=== PATIENT | female | born 1980 | race Caucasian/White ===

== ENCOUNTER 2020-04-05 12:00 | Outpatient (RCR) | payer OTHER, SELFPAY ==
--- NOTE | 2019-12-08 10:18 | PT.OIE ---
Current Diagnoses Lumbago with sciatica, unspecified side (12/07/19) Visit Care Team Role Provider Type CRISTIAN Hdez Attending Provider Non-Staff Primary Care Provider Referring Provider Specialty: Medical Address: [address] [place] [address], [address], [place], [address] Email: Physical Therapy Initial Evaluation PT-OP-A Visit Information Start: 12/07/19 11:58 Freq: Status: Active Protocol: Document 12/07/19 13:43 [facility] (Rec: 12/07/19 13:55 [facility] [id number]) Out-Patient Physical Therapy Visit Information Visit Information Visit Type Initial Evaluation Visit Start Time 13:45 Visit Stop Time 14:30 Total Visit Minutes 45 Visit Number 1 Evaluation Information Evaluation Date 12/07/19 PT-OP-B Current Condition Start: 12/07/19 11:58 Freq: Status: Active Protocol: Document 12/07/19 13:43 [facility] (Rec: 12/07/19 13:55 [facility] [id number]) Current Condition History of Current Condition Onset Date ongoing complaints of back pain History of Current Condition When she was with her daughter 10 years ago the pain began. She was 9.5 #. 27 hour labor. Vaginal . Since then, It has been coming and going since then but this year she has had to take two days off of work due to so much pain. Sciatic pain that would make her drop her leg. The pain can change sides. She has been getting regular ocular care aide. She has been feeling improvement with that. Feels like she isn't able to keep her core engaged in standing. She did try yoga this fall but that didn't change her symptoms. PT-OP-C Subjective Start: 12/07/19 11:58 Freq: Status: Active Protocol: Document 12/07/19 17:43 [facility] (Rec: 12/07/19 17:45 [facility] [id number]) OP-PT Pain Assessment Pain Assessment Grid Paper Pain Assessment Grid Completed Yes Location across the lower sacral region Pain Location Details pain across the low back and sacrum, pain radiates down the back of B Legs Intensity 4 Scale Used Numeric (0 - 10) Radiating Location to the posterior legs bilaterally Pain Aggravating Factors Activity,Exercise Comments Pain Comments pain is intermittent, it can range from 1-4 but then at times can increase to 7-8/10 with sciatic symptoms PT-OP-F Manual Assessment Start: 12/07/19 11:58 Freq: Status: Active Protocol: Document 12/07/19 17:46 [facility] (Rec: 12/07/19 17:53 [facility] [id number]) Manual Assessments Soft Tissue Assessment Soft Tissue Mobility Assessment tightness of the lumbar parapspinals, quadratus lumborum, piriformis B, obturator internus, coccygues Joint Mobility Assessment Joint Mobility Assessment decreased sacral movement into counternutation, decreased posterior hip capsule mobility B PT-OP-J Posture/Palpation/Skin Start: 12/07/19 11:58 Freq: Status: Active Protocol: Document 12/07/19 17:46 [facility] (Rec: 12/07/19 17:53 [facility] [id number]) Posture Evaluation Comments Posture Comments flattened lumbar curve with patient placing strain on the anterior hips Palpation Assessment Location piriformis Palpation Location B piriformis Palpation Findings Soft Tissue Tightness,Spasm, Muscle Guarding,Tenderness lumbar paraspinals Palpation Location lumbar paraspinals Palpation Findings Soft Tissue Tightness,Muscle Guarding,Tenderness PT-OP-K Range of Motion Start: 12/07/19 11:58 Freq: Status: Active Protocol: Document 12/07/19 17:46 [facility] (Rec: 12/07/19 17:53 [facility] [id number]) Lumbar Spine Range of Motion Lumbar Spine Active Testing Position Standing Comments WNL but pain is increased with lumbar extension Hip Goniometric Range of Motion Hip ROM Limitations Hip ROM Limitations Soft Tissue Tightness Comments decreased hip flexion B to 110 degrees with posterior hip capsule tightness PT-OP-L Special Tests Start: 12/07/19 11:58 Freq: Status: Active Protocol: Document 12/07/19 17:46 [facility] (Rec: 12/07/19 17:53 [facility] [id number]) Special Tests Lumbar Spine Special Tests Other- 1 Test Results + ASLR test on the right for left side unlocking of the SI joint PT-OP-M Strength Start: 12/07/19 11:58 Freq: Status: Active Protocol: Document 12/07/19 17:46 [facility] (Rec: 12/07/19 17:53 [facility] [id number]) Trunk Strength Trunk Manual Muscle Testing Testing Position Supine Core Stabilization Decreased core stability of pelvic floor and Transverse abdominal musculature PT-OP-Q Treatments Start: 12/07/19 11:58 Freq: Status: Active Protocol: Document 12/07/19 17:46 [facility] (Rec: 12/07/19 17:53 [facility] [id number]) Therapeutic Exercises Supine Exercises TA facilitation with marches Supine Exercise Name TA facilitation with marches Side bilateral iliopsoas stretch in darrel test position Supine Exercise Name iliopsoas stretch in darrel test position Side bilateral Reps/Minutes hold 60 sec Other Exercises jose pose Other Exercise Name jose pose Side bilateral quadraped cat cow and sidebends Reps/Minutes x 10 each Manual Therapy Treatment Soft Tissue Mobilization lumbar paraspinal STM Body Location lumbar paraspinals Mobilization Type Myofascial Release,Rolling Intensity/Depth Moderate Body Position Prone Comments Prone over the body pillow, lots of tightness and compression in the lumbar paraspinals PT-OP-T Assessment and Plan Start: 12/07/19 11:58 Freq: Status: Active Protocol: Document 12/07/19 17:53 [facility] (Rec: 12/07/19 17:58 [facility] [id number]) Physical Therapy Assessment Rehab Potential Rehabilitation Potential Excellent Evaluation Complexity Number of Personal Factors/Comorbidities 0 Number of Body Systems Impaired 1-2 Clinical Presentation at Evaluation Stable Impairments Impairments Activity Tolerance,Pain, Posture,ROM,Soft Tissue Mobility,Strength Goals Five Impairment posterior hip capsule tightness with decreased ROM of hip flexion/extension Senior Care Goal (LTG) Marianne demonstrates full pain free ROM of B hips and has improved mobility of the posterior hip capsule to allow for full hip flexion with daily activities LTG Duration 8 weeks Four Impairment Piriformis tightness contributing to sciatic pain Short Term Goal (STG) Marianne is educated on stretches to release the piriformis muscle as well as educated on decreased gluteal tightness with standing to decrease c/o sciatic symptoms STG Duration 4 weeks Three Impairment Decreased strength of the transverse abdominal muscles and pelvic floor Short Term Goal (STG) Marianne is able to sustain a pelvic floor and transverse abdominal contraction x 10 seconds STG Duration 4 weeks Senior Care Goal (LTG) Marianne is able to perform dynamic lumbar and SI stabilization exercises for improved support of the low back and SI joint. LTG Duration 8 weeks Two Impairment Lumbar paraspinal tightness and shortening of the muscles Short Term Goal (STG) Marianne is educated on specific stretches she can do to lengthen the lumbar paraspinals STG Duration 4 weeks One Impairment low back and sacral pain with intermittent sciatic symptoms down B post LE Drill Instructor Goal (LTG) Marianne reports decreased episodes of LBP and sacral pain and is no longer experiencing sciatic symptoms down the posterior B LE LTG Duration 8 weeks Assessment Summary Assessment Marianne presents to PT today with c/o low back pain that is intermittent in nature with radicular symptoms at times down the posterior thighs. She reports it is difficut for her to stand up in good posture as it feels difficult to do. Pain will begin in her sacrum and then radiate out to her lateral hip. With examination today Marianne stands with a flattened lumbar curve . Sacral counternutation is limited. She has a great deal of tightness in her lumbar paraspinals. Lumbar flexion feels good to her and extension increases her pain. She tends to hang on her Y ligaments in the anterior hip a bit. She lacks full hip flexion bilaterally with tightness in the posterior hip capsule. She has tightness in her iliopsoas Left greater than right side. Her inner core muscles are weak and SI/ low back stabilization is decreased. Physical Therapy Plan Frequency and Duration Frequency of Treatment 2x/Week Duration of Treatment 8 Plan of Care Start Date 12/07/19 Plan of Care End Date 02/01/20 Therapeutic Interventions Therapeutic Interventions Home Exercise Program,Joint Mobilizations,Manual Therapy, Neuromuscular Re-education, Patient/Caregiver Education, Self-Care/Home Management,Soft Tissue Mobilization, Therapeutic Exercises Next Visit Focus/Plan Next Note Type Treatment Note Next Visit Plan work on posterior hip capsule mobility, release at the piriformis B, TA and pelvic floor stabilization, add happy baby stretch for lumbar flexion and hip mobility, STM to lengthen the lumbar paraspinals
--- NOTE | 2019-12-08 10:19 | PT.OPPOC ---
Physical, Occupational & Speech Therapy At [facility] Current Diagnoses Lumbago with sciatica, unspecified side (12/07/19) Visit Care Team Role Provider Type CRISTIAN Hdez Attending Provider Non-Staff Primary Care Provider Referring Provider Specialty: Medical Address: [address] [place] [address] [address], [place], [address] Email: Plan Of Care PT-OP-T Assessment and Plan Start: 12/07/19 11:58 Freq: Status: Active Protocol: Document 12/07/19 17:53 [facility] (Rec: 12/07/19 17:58 [facility] [id number]) Physical Therapy Assessment Rehab Potential Rehabilitation Potential Excellent Evaluation Complexity Number of Personal Factors/Comorbidities 0 Number of Body Systems Impaired 1-2 Clinical Presentation at Evaluation Stable Impairments Impairments Activity Tolerance,Pain, Posture,ROM,Soft Tissue Mobility,Strength Goals Five Impairment posterior hip capsule tightness with decreased ROM of hip flexion/extension Yolk Spray Drier Goal (LTG) Marianne demonstrates full pain free ROM of B hips and has improved mobility of the posterior hip capsule to allow for full hip flexion with daily activities LTG Duration 8 weeks Four Impairment Piriformis tightness contributing to sciatic pain Short Term Goal (STG) Marianne is educated on stretches to release the piriformis muscle as well as educated on decreased gluteal tightness with standing to decrease c/o sciatic symptoms STG Duration 4 weeks Three Impairment Decreased strength of the transverse abdominal muscles and pelvic floor Short Term Goal (STG) Marianne is able to sustain a pelvic floor and transverse abdominal contraction x 10 seconds STG Duration 4 weeks Yolk Spray Drier Goal (LTG) Marianne is able to perform dynamic lumbar and SI stabilization exercises for improved support of the low back and SI joint. LTG Duration 8 weeks Two Impairment Lumbar paraspinal tightness and shortening of the muscles Short Term Goal (STG) Marianne is educated on specific stretches she can do to lengthen the lumbar paraspinals STG Duration 4 weeks One Impairment low back and sacral pain with intermittent sciatic symptoms down B post LE Yolk Spray Drier Goal (LTG) Marianne reports decreased episodes of LBP and sacral pain and is no longer experiencing sciatic symptoms down the posterior B LE LTG Duration 8 weeks Assessment Summary Assessment Marianne presents to PT today with c/o low back pain that is intermittent in nature with radicular symptoms at times down the posterior thighs. She reports it is fatiguing for her to stand up in good posture as it feels difficult to do. Pain will begin in her sacrum and then radiate out to her lateral hip. With examination today Marianne stands with a flattened lumbar curve. Sacral counter nutation is limited. She has a great deal of tightness in her lumbar paraspinals. Lumbar flexion feels good to her and extension increases her pain. She tends to hang on her Y ligaments in the anterior hip a bit. She lacks full hip flexion bilaterally with tightness in the posterior hip capsule. She has tightness in her iliopsoas Left greater than right side. Her inner core muscles are weak and SI/ low back stabilization is decreased. Marianne is a good candidate for PT. Physical Therapy Plan Frequency and Duration Frequency of Treatment 2x/Week Duration of Treatment 8 Plan of Care Start Date 12/07/19 Plan of Care End Date 02/01/20 Therapeutic Interventions Therapeutic Interventions Home Exercise Program,Joint Mobilizations,Manual Therapy, Neuromuscular Re-education, Patient/Caregiver Education, Self-Care/Home Management,Soft Tissue Mobilization, Therapeutic Exercises Next Visit Focus/Plan Next Note Type Treatment Note Next Visit Plan work on posterior hip capsule mobility, release at the piriformis B, TA and pelvic floor stabilization, add happy baby stretch for lumbar flexion and hip mobility, STM to lengthen the lumbar paraspinals Plan of Care Dates Plan of Care Start Date 12/07/19 Plan of Care End Date 02/01/20 Electronically Signed by: Pooja Guidry, PT 12/08/19 1019 Please Sign and Return: I have reviewed this Plan of Care and certify that the skilled therapy services above are required to meet the patient?s needs. Physician Signature Date Printed Name and Credentials Clinical Instructor Signature Printed Name and Credentials
--- NOTE | 2019-12-14 15:54 | PT.OTN ---
Current Diagnoses Lumbago with sciatica, unspecified side (12/14/19) Physical Therapy Treatment Note PT-OP-A Visit Information Start: 12/07/19 11:58 Freq: Status: Active Protocol: Document 12/14/19 13:53 [facility] (Rec: 12/14/19 13:56 [facility] [id number]) Out-Patient Physical Therapy Visit Information Visit Information Visit Type Treatment Note Visit Stop Time 13:45 Total Visit Minutes 1,430 Visit Number 45 Number of DIGITAL PRESS OPERATOR Visits 2 PT-OP-B Current Condition Start: 12/07/19 11:58 Freq: Status: Active Protocol: Document 12/07/19 13:43 [facility] (Rec: 12/07/19 13:55 [facility] [id number]) Current Condition History of Current Condition Onset Date ongoing complaints of back pain History of Current Condition When she was with her daughter 10 years ago the pain began. She was 9.5 #. 27 hour labor. Vaginal . Since then, It has been coming and going since then but this year she has had to take two days off of work due to so much pain. Sciatic pain that would make her drop her leg. The pain can change sides. She has been getting regular congregational care pastor. She has been feeling improvement with that. Feels like she isn't able to keep her core engaged in standing. She did try yoga this fall but that didn't change her symptoms. PT-OP-C Subjective Start: 12/07/19 11:58 Freq: Status: Active Protocol: Document 12/14/19 13:53 [facility] (Rec: 12/14/19 13:56 [facility] [id number]) OP-PT Subjective Patient Comments Patient Comments Did well after last visit, had a adjustment yesterday from her chiropractor and it took the pressure off but she feels the sacral pain. It feels like the nerve is flared and she can feel pain in her R anterior hip as well. Marianne notes she has been trying to stand without her gluteals clenched. PT-OP-F Manual Assessment Start: 12/07/19 11:58 Freq: Status: Active Protocol: Document 12/07/19 17:46 [facility] (Rec: 12/07/19 17:53 [facility] [id number]) Manual Assessments Soft Tissue Assessment Soft Tissue Mobility Assessment tightness of the lumbar parapspinals, quadratus lumborum, piriformis B, obturator internus, coccygues Joint Mobility Assessment Joint Mobility Assessment decreased sacral movement into counternutation, decreased posterior hip capsule mobility B PT-OP-J Posture/Palpation/Skin Start: 12/07/19 11:58 Freq: Status: Active Protocol: Document 12/07/19 17:46 [facility] (Rec: 12/07/19 17:53 [facility] [id number]) Posture Evaluation Comments Posture Comments flattened lumbar curve with patient placing strain on the anterior hips Palpation Assessment Location piriformis Palpation Location B piriformis Palpation Findings Soft Tissue Tightness,Spasm, Muscle Guarding,Tenderness lumbar paraspinals Palpation Location lumbar paraspinals Palpation Findings Soft Tissue Tightness,Muscle Guarding,Tenderness PT-OP-K Range of Motion Start: 12/07/19 11:58 Freq: Status: Active Protocol: Document 12/07/19 17:46 [facility] (Rec: 12/07/19 17:53 [facility] [id number]) Lumbar Spine Range of Motion Lumbar Spine Active Testing Position Standing Comments WNL but pain is increased with lumbar extension Hip Goniometric Range of Motion Hip ROM Limitations Hip ROM Limitations Soft Tissue Tightness Comments decreased hip flexion B to 110 degrees with posterior hip capsule tightness PT-OP-L Special Tests Start: 12/07/19 11:58 Freq: Status: Active Protocol: Document 12/07/19 17:46 [facility] (Rec: 12/07/19 17:53 [facility] [id number]) Special Tests Lumbar Spine Special Tests Other- 1 Test Results + ASLR test on the right for left side unlocking of the SI joint PT-OP-M Strength Start: 12/07/19 11:58 Freq: Status: Active Protocol: Document 12/07/19 17:46 [facility] (Rec: 12/07/19 17:53 [facility] [id number]) Trunk Strength Trunk Manual Muscle Testing Testing Position Supine Core Stabilization Decreased core stability of pelvic floor and Transverse abdominal musculature PT-OP-Q Treatments Start: 12/07/19 11:58 Freq: Status: Active Protocol: Document 12/14/19 13:53 [facility] (Rec: 12/14/19 13:56 [facility] [id number]) Therapeutic Exercises Supine Exercises happy baby Supine Exercise Name happy baby stretch Reps/Minutes hold 2-3 minutes hip abduction with theraband Supine Exercise Name hip abduction with theraband Reps/Minutes x 10 reps ball squeeze with pelvic floor activation Supine Exercise Name ball squeeze with pelvic floor activation Reps/Minutes 10 reps x 5 sec hold TA facilitation with marches Supine Exercise Name TA facilitation with marches Side bilateral iliopsoas stretch in darrel test position Supine Exercise Name iliopsoas stretch in darrel test position Side bilateral Reps/Minutes hold 60 sec Manual Therapy Treatment Soft Tissue Mobilization 1 Body Location STM around the sacrum in a prone position over the body pillow Comments pt tolerates the prone body pillow. She has pain with trying to lay prone without it . Joint Mobilizations posterior hip capsule mobilization Joint supine hip inferior glide with belt Comments gentel posterior capule mobilizations were performed but Marianne was hesitant on this motion so grade 1 only was performed. Hip distraction felt good. Manual Techniques MET right anterior innominant rotation Type MET Right anterior innominant rotation Comments good correction of anterior rotation on the right with MET today. PT-OP-T Assessment and Plan Start: 12/07/19 11:58 Freq: Status: Active Protocol: Document 12/14/19 15:50 [facility] (Rec: 12/14/19 15:54 [facility] [id number]) Physical Therapy Assessment Assessment Summary Assessment Marianne did well following last visit, today she felt pain in her right sacral region and felt some nerve pain. She was anteriorly rotated in her innomiant today and this corrected with a MET. I feel she is unstable in her SI and she shifts out pretty frequently. The goal is to stabilize her and reduce muscle tone in the lumbar paraspinals. I held off on TA with bc today and we focused on isometric pelvic floor and TA. She was shown the SI belt and this did feel good to her when she tried it on. She was given information on a SI belt for home. She was also shown how to use the miracle balls for self piriformis release. Physical Therapy Plan Frequency and Duration Frequency of Treatment 2x/Week Duration of Treatment 8 Plan of Care Start Date 12/07/19 Plan of Care End Date 02/01/20 Therapeutic Interventions Therapeutic Interventions Home Exercise Program,Joint Mobilizations,Manual Therapy, Neuromuscular Re-education, Patient/Caregiver Education, Self-Care/Home Management,Soft Tissue Mobilization, Therapeutic Exercises Next Visit Focus/Plan Next Note Type Treatment Note Next Visit Plan continue to work on SI stabilization, try posterior hip capsule mobilizations again as Marianne lacks full hip flexion, continue to work on releasing the piriformis, recheck SI and sacral position next visit.
--- NOTE | 2019-12-22 17:08 | PT.OTN ---
Current Diagnoses Lumbago with sciatica, unspecified side (12/22/19) Physical Therapy Treatment Note PT-OP-A Visit Information Start: 12/07/19 11:58 Freq: Status: Active Protocol: Document 12/22/19 16:56 AW (Rec: 12/22/19 17:08 AW [id number]) Out-Patient Physical Therapy Visit Information Visit Information Visit Type Treatment Note Visit Start Time 15:18 Visit Stop Time 16:03 Total Visit Minutes 45 Visit Number 3 Number of RECEPTIONIST TELEPHONE OPERATOR Visits 0 PT-OP-B Current Condition Start: 12/07/19 11:58 Freq: Status: Active Protocol: Document 12/07/19 13:43 AM[facility] (Rec: 12/07/19 13:55 AMH [id number]) Current Condition History of Current Condition Onset Date ongoing complaints of back pain History of Current Condition When she was with her daughter 10 years ago the pain began. She was 9.5 #. 27 hour labor. Vaginal . Since then, It has been coming and going since then but this year she has had to take two days off of work due to so much pain. Sciatic pain that would make her drop her leg. The pain can change sides. 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 She has been feeling improvement with that. Feels like she isn't able to keep her core engaged in standing. She did try yoga this fall but that didn't change her symptoms. PT-OP-C Subjective Start: 12/07/19 11:58 Freq: Status: Active Protocol: Document 12/22/19 16:56 AW (Rec: 12/22/19 17:08 AW [id number]) OP-PT Subjective Patient Comments Patient Comments Pt had a chiropractic adjustment yesterday and is feeling ok today. PT-OP-F Manual Assessment Start: 12/07/19 11:58 Freq: Status: Active Protocol: Document 12/07/19 17:46 AMH (Rec: 12/07/19 17:53 AMH [id number]) Manual Assessments Soft Tissue Assessment Soft Tissue Mobility Assessment tightness of the lumbar parapspinals, quadratus lumborum, piriformis B, obturator internus, coccygues Joint Mobility Assessment Joint Mobility Assessment decreased sacral movement into counternutation, decreased posterior hip capsule mobility B PT-OP-J Posture/Palpation/Skin Start: 12/07/19 11:58 Freq: Status: Active Protocol: Document 12/07/19 17:46 AMH (Rec: 12/07/19 17:53 AMH [id number]) Posture Evaluation Comments Posture Comments flattened lumbar curve with patient placing strain on the anterior hips Palpation Assessment Location piriformis Palpation Location B piriformis Palpation Findings Soft Tissue Tightness,Spasm, Muscle Guarding,Tenderness lumbar paraspinals Palpation Location lumbar paraspinals Palpation Findings Soft Tissue Tightness,Muscle Guarding,Tenderness PT-OP-K Range of Motion Start: 12/07/19 11:58 Freq: Status: Active Protocol: Document 12/07/19 17:46 AMH (Rec: 12/07/19 17:53 AMH [id number]) Lumbar Spine Range of Motion Lumbar Spine Active Testing Position Standing Comments WNL but pain is increased with lumbar extension Hip Goniometric Range of Motion Hip ROM Limitations Hip ROM Limitations Soft Tissue Tightness Comments decreased hip flexion B to 110 degrees with posterior hip capsule tightness PT-OP-L Special Tests Start: 12/07/19 11:58 Freq: Status: Active Protocol: Document 12/07/19 17:46 AMH (Rec: 12/07/19 17:53 AMH [id number]) Special Tests Lumbar Spine Special Tests Other- 1 Test Results + ASLR test on the right for left side unlocking of the SI joint PT-OP-M Strength Start: 12/07/19 11:58 Freq: Status: Active Protocol: Document 12/07/19 17:46 AMH (Rec: 12/07/19 17:53 AMH [id number]) Trunk Strength Trunk Manual Muscle Testing Testing Position Supine Core Stabilization Decreased core stability of pelvic floor and Transverse abdominal musculature PT-OP-Q Treatments Start: 12/07/19 11:58 Freq: Status: Active Protocol: Document 12/22/19 16:56 AW (Rec: 12/22/19 17:08 AW [id number]) Therapeutic Exercises Supine Exercises TA facilitation with marches Supine Exercise Name TA facilitation with marches Side bilateral Reps/Minutes 12 minutes Comments bent knee fallouts, marches, heel slides on and off the table iliopsoas stretch in darrel test position Supine Exercise Name iliopsoas stretch in darrel test position Side bilateral Reps/Minutes hold 60 sec Comments with contract/relax Other Exercises jose pose Other Exercise Name jose pose Side bilateral Comments with hands walked out to left combined with STM L piriformis quadraped cat cow and sidebends Reps/Minutes x 10 each Manual Therapy Treatment Soft Tissue Mobilization lumbar paraspinal STM Body Location lumbar paraspinals Mobilization Type Myofascial Release,Rolling Intensity/Depth Moderate Body Position Prone Comments In quadruped/child's pose Joint Mobilizations distraction Grade III Body Position Supine Comments with slight rotation both directions posterior hip capsule mobilization Joint inferior glides with manual traction Grade III Comments Pt still hesitant regarding posterior glides but reports inferior glide feels good PT-OP-T Assessment and Plan Start: 12/07/19 11:58 Freq: Status: Active Protocol: Document 12/22/19 16:56 AW (Rec: 12/22/19 17:08 AW [id number]) Physical Therapy Assessment Assessment Summary Assessment Marianne denied nerve pain today but did have complaint of right sacral pain. Child's pose stretch with emphasis on posterior hip capsule was an effective introduction to posterior mobilization which pt may be interested in at next visit. 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 Physical Therapy Plan Frequency and Duration Frequency of Treatment 2x/Week Duration of Treatment 8 Plan of Care Start Date 12/07/19 Plan of Care End Date 02/01/20 Therapeutic Interventions Therapeutic Interventions Home Exercise Program,Joint Mobilizations,Manual Therapy, Neuromuscular Re-education, Patient/Caregiver Education, Self-Care/Home Management,Soft Tissue Mobilization, Therapeutic Exercises Next Visit Focus/Plan Next Note Type Treatment Note Next Visit Plan continue to work on SI stabilization, try posterior hip capsule mobilizations again as Marianne lacks full hip flexion, continue to work on releasing the piriformis, recheck SI and sacral position next visit.
--- NOTE | 2019-12-31 08:24 | PT.OTN ---
Current Diagnoses Lumbago with sciatica, unspecified side (12/31/19) Physical Therapy Treatment Note PT-OP-A Visit Information Start: 12/07/19 11:58 Freq: Status: Active Protocol: Document 12/31/19 07:30 SP (Rec: 12/31/19 09:27 SP [id number]) Out-Patient Physical Therapy Visit Information Visit Information Visit Type Treatment Note Visit Start Time 07:30 Visit Stop Time 08:24 Total Visit Minutes 54 Visit Number 4 Number of CAPACITOR TESTER Visits 1 PT-OP-B Current Condition Start: 12/07/19 11:58 Freq: Status: Active Protocol: Document 12/07/19 13:43 AMH (Rec: 12/07/19 13:55 AMH [id number]) Current Condition History of Current Condition Onset Date ongoing complaints of back pain History of Current Condition When she was with her daughter 10 years ago the pain began. She was 9.5 #. 27 hour labor. Vaginal . Since then, It has been coming and going since then but this year she has had to take two days off of work due to so much pain. Sciatic pain that would make her drop her leg. The pain can change sides. 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 She has been feeling improvement with that. Feels like she isn't able to keep her core engaged in standing. She did try yoga this fall but that didn't change her symptoms. PT-OP-C Subjective Start: 12/07/19 11:58 Freq: Status: Active Protocol: Document 12/31/19 07:30 SP (Rec: 12/31/19 09:27 SP [id number]) OP-PT Subjective Patient Comments Patient Comments Pt stated compliant with HEP stretches and strengthening pelvic exercises and feels pelvis is very tired after but loosened up more than when started. She took approx 3 mile walk with inclines about 2 days ago and anterior B thighs still soreness. Still gets a wedged tightness and almost block feeling R > L more anterior R hip and deep low back that doesn't fully release when tries to perform hip flexion motions. At times when performing the child's pose deeper hip flexion stretch motions does get a light nervy feeling in R L/S down into R glut and some into L glut areas. Pt concerned about the tiring feeling after exercises and her walks if is normal for how progressing and why. PT-OP-F Manual Assessment Start: 12/07/19 11:58 Freq: Status: Active Protocol: Document 12/07/19 17:46 AMH (Rec: 12/07/19 17:53 [facility] [id number]) Manual Assessments Soft Tissue Assessment Soft Tissue Mobility Assessment tightness of the lumbar parapspinals, quadratus lumborum, piriformis B, obturator internus, coccygues Joint Mobility Assessment Joint Mobility Assessment decreased sacral movement into counternutation, decreased posterior hip capsule mobility B PT-OP-J Posture/Palpation/Skin Start: 12/07/19 11:58 Freq: Status: Active Protocol: Document 12/07/19 17:46 AMH (Rec: 12/07/19 17:53 [facility] [id number]) Posture Evaluation Comments Posture Comments flattened lumbar curve with patient placing strain on the anterior hips Palpation Assessment Location piriformis Palpation Location B piriformis Palpation Findings Soft Tissue Tightness,Spasm, Muscle Guarding,Tenderness lumbar paraspinals Palpation Location lumbar paraspinals Palpation Findings Soft Tissue Tightness,Muscle Guarding,Tenderness PT-OP-K Range of Motion Start: 12/07/19 11:58 Freq: Status: Active Protocol: Document 12/07/19 17:46 AMH (Rec: 12/07/19 17:53 [facility] [id number]) Lumbar Spine Range of Motion Lumbar Spine Active Testing Position Standing Comments WNL but pain is increased with lumbar extension Hip Goniometric Range of Motion Hip ROM Limitations Hip ROM Limitations Soft Tissue Tightness Comments decreased hip flexion B to 110 degrees with posterior hip capsule tightness PT-OP-L Special Tests Start: 12/07/19 11:58 Freq: Status: Active Protocol: Document 12/07/19 17:46 AMH (Rec: 12/07/19 17:53 [facility] [id number]) Special Tests Lumbar Spine Special Tests Other- 1 Test Results + ASLR test on the right for left side unlocking of the SI joint PT-OP-M Strength Start: 12/07/19 11:58 Freq: Status: Active Protocol: Document 12/07/19 17:46 AMH (Rec: 12/07/19 17:53 [facility] [id number]) Trunk Strength Trunk Manual Muscle Testing Testing Position Supine Core Stabilization Decreased core stability of pelvic floor and Transverse abdominal musculature PT-OP-Q Treatments Start: 12/07/19 11:58 Freq: Status: Active Protocol: Document 12/31/19 07:30 SP (Rec: 12/31/19 09:27 SP [id number]) Therapeutic Exercises Supine Exercises happy baby Supine Exercise Name happy baby stretch Reps/Minutes hold 2-3 minutes Other Exercises jose pose Other Exercise Name jose pose Side bilateral Comments with hands walked out to left combined with STM L piriformis quadraped cat cow and sidebends Reps/Minutes x 10 each Comments side bends (tail wag looking) cued for elevation/ level R pelvis multif fac Manual Therapy Treatment Soft Tissue Mobilization psoas, iliacus Body Location R>L Mobilization Type Myofascial Release,Sustained Pressure Intensity/Depth Moderate Body Position Hooklying Comments gentle pressure, sink with breath- muscle guarding 1 Body Location STM around the sacrum in a prone position over the body pillow Comments pt tolerates the prone body pillow. She has pain with trying to lay prone without it . (tried child's pose today) lumbar paraspinal STM Body Location lumbar paraspinals Mobilization Type Myofascial Release,Rolling Intensity/Depth Moderate Body Position Prone Comments In quadruped/child's pose Joint Mobilizations distraction Grade III Body Position Supine Comments with slight rotation both directions posterior hip capsule mobilization Joint inferior glides with manual traction Grade III Comments Pt still hesitant regarding posterior glides but reports inferior glide feels good PT-OP-T Assessment and Plan Start: 12/07/19 11:58 Freq: Status: Active Protocol: Document 12/31/19 07:30 SP (Rec: 12/31/19 09:27 SP [id number]) Physical Therapy Assessment Goals Five Impairment posterior hip capsule tightness with decreased ROM of hip flexion/extension New Car Get Ready Mechanic Goal (LTG) Marianne demonstrates full pain free ROM of B hips and has improved mobility of the posterior hip capsule to allow for full hip flexion with daily activities LTG Duration 8 weeks Four Impairment Piriformis tightness contributing to sciatic pain Short Term Goal (STG) Marianne is educated on stretches to release the piriformis muscle as well as educated on decreased gluteal tightness with standing to decrease c/o sciatic symptoms STG Duration 4 weeks Three Impairment Decreased strength of the transverse abdominal muscles and pelvic floor Short Term Goal (STG) Marianne is able to sustain a pelvic floor and transverse abdominal contraction x 10 seconds STG Duration 4 weeks Senior Living Goal (LTG) Marianne is able to perform dynamic lumbar and SI stabilization exercises for improved support of the low back and SI joint. LTG Duration 8 weeks Two Impairment Lumbar paraspinal tightness and shortening of the muscles Short Term Goal (STG) Marianne is educated on specific stretches she can do to lengthen the lumbar paraspinals STG Duration 4 weeks One Impairment low back and sacral pain with intermittent sciatic symptoms down B post LE Senior Living Goal (LTG) Marianne reports decreased episodes of LBP and sacral pain and is no longer experiencing sciatic symptoms down the posterior B LE LTG Duration 8 weeks Assessment Summary Assessment Pt comments that initially posterior > inferior glides trying to relax to allow deep stretch and can feel some releases but can turn into tiring (unsure if that means jt releasing then musculature starts to engage to keep jt stable). Provided education to give us feedback for benefits of release but not destabillize jt possible feeling of tiredness. Pt reported felt more relaxed and ableto allow her tailbone extend more which feels better but still does not get that full release wanting and same little front pelvic girdle and anterior thigh tiring feeling . Educated tiring might be musculature trying to strengthen and working toward balance of endurance of allowing tightness releases while supporting SI, L/S and hip joints. The 3 mile walk might have been to long of a distance to maintain stabilzation so over tightened and muscle engagement causing tiring feeling. Physical Therapy Plan Frequency and Duration Frequency of Treatment 2x/Week Duration of Treatment 8 Plan of Care Start Date 12/07/19 Plan of Care End Date 02/01/20 Therapeutic Interventions Therapeutic Interventions Home Exercise Program,Joint Mobilizations,Manual Therapy, Neuromuscular Re-education, Patient/Caregiver Education, Self-Care/Home Management,Soft Tissue Mobilization, Therapeutic Exercises Next Visit Focus/Plan Next Note Type Treatment Note Next Visit Plan Assess response to STMs to psoas last tx. continue to work on SI stabilization, try posterior hip capsule mobilizations again as Marianne lacks full hip flexion, continue to work on releasing the piriformis, recheck SI and sacral position next visit.
--- NOTE | 2020-01-07 08:15 | PT.OTN ---
Current Diagnoses Lumbago with sciatica, unspecified side (01/07/20) Physical Therapy Treatment Note PT-OP-A Visit Information Start: 12/07/19 11:58 Freq: Status: Active Protocol: Document 01/07/20 07:31 SP (Rec: 01/07/20 09:23 SP [id number]) Out-Patient Physical Therapy Visit Information Visit Information Visit Type Treatment Note Visit Start Time 07:31 Visit Stop Time 08:15 Total Visit Minutes 44 Visit Number 5 Number of RESCUE INSTRUCTOR Visits 1 PT-OP-B Current Condition Start: 12/07/19 11:58 Freq: Status: Active Protocol: Document 12/07/19 13:43 AMH (Rec: 12/07/19 13:55 AMH [id number]) Current Condition History of Current Condition Onset Date ongoing complaints of back pain History of Current Condition When she was with her daughter 10 years ago the pain began. She was 9.5 #. 27 hour labor. Vaginal . Since then, It has been coming and going since then but this year she has had to take two days off of work due to so much pain. Sciatic pain that would make her drop her leg. The pain can change sides. 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 She has been feeling improvement with that. Feels like she isn't able to keep her core engaged in standing. She did try yoga this fall but that didn't change her symptoms. PT-OP-C Subjective Start: 12/07/19 11:58 Freq: Status: Active Protocol: Document 01/07/20 07:31 SP (Rec: 01/07/20 09:23 SP [id number]) OP-PT Subjective Patient Comments Patient Comments Pt reported HEP improving strength, hip adduction isometric more challenging than abd against resistance, the stretching is helping but not getting that last deep release (pointed to SI) that wanting. PT-OP-F Manual Assessment Start: 12/07/19 11:58 Freq: Status: Active Protocol: Document 12/07/19 17:46 AMH (Rec: 12/07/19 17:53 AMH [id number]) Manual Assessments Soft Tissue Assessment Soft Tissue Mobility Assessment tightness of the lumbar parapspinals, quadratus lumborum, piriformis B, obturator internus, coccygues Joint Mobility Assessment Joint Mobility Assessment decreased sacral movement into counternutation, decreased posterior hip capsule mobility B PT-OP-J Posture/Palpation/Skin Start: 12/07/19 11:58 Freq: Status: Active Protocol: Document 12/07/19 17:46 AMH (Rec: 12/07/19 17:53 AMH [id number]) Posture Evaluation Comments Posture Comments flattened lumbar curve with patient placing strain on the anterior hips Palpation Assessment Location piriformis Palpation Location B piriformis Palpation Findings Soft Tissue Tightness,Spasm, Muscle Guarding,Tenderness lumbar paraspinals Palpation Location lumbar paraspinals Palpation Findings Soft Tissue Tightness,Muscle Guarding,Tenderness PT-OP-K Range of Motion Start: 12/07/19 11:58 Freq: Status: Active Protocol: Document 12/07/19 17:46 AMH (Rec: 12/07/19 17:53 AMH [id number]) Lumbar Spine Range of Motion Lumbar Spine Active Testing Position Standing Comments WNL but pain is increased with lumbar extension Hip Goniometric Range of Motion Hip ROM Limitations Hip ROM Limitations Soft Tissue Tightness Comments decreased hip flexion B to 110 degrees with posterior hip capsule tightness PT-OP-L Special Tests Start: 12/07/19 11:58 Freq: Status: Active Protocol: Document 12/07/19 17:46 AMH (Rec: 12/07/19 17:53 AMH [id number]) Special Tests Lumbar Spine Special Tests Other- 1 Test Results + ASLR test on the right for left side unlocking of the SI joint PT-OP-M Strength Start: 12/07/19 11:58 Freq: Status: Active Protocol: Document 12/07/19 17:46 AMH (Rec: 12/07/19 17:53 AMH [id number]) Trunk Strength Trunk Manual Muscle Testing Testing Position Supine Core Stabilization Decreased core stability of pelvic floor and Transverse abdominal musculature PT-OP-Q Treatments Start: 12/07/19 11:58 Freq: Status: Active Protocol: Document 01/07/20 07:31 SP (Rec: 01/07/20 09:23 SP [id number]) Therapeutic Exercises Supine Exercises TA heel slides Supine Exercise Name x5 R and L, then alternate x3 Reps/Minutes x10 Comments cuing TA and pelvis PPT comfort rang, not full ext ( challenges pelvis pos) hip abduction with theraband Supine Exercise Name hip abduction with theraband Resistance Green TB (#2 HEP) Reps/Minutes x 10 reps pause 2 sec comfort range Comments towel under buttocks suspend sacrum, TA cuing mid range pelvis ball squeeze with pelvic floor activation Supine Exercise Name ball squeeze with pelvic floor activation Resistance small purple ball (small pillow) Reps/Minutes 10 reps x 5 sec hold Comments towel under buttocks suspend sacrum, TA cuing mid range pelvis Prone Exercises modified bird dog Prone Exercise Name heel slide intially then small lift Side bilateral Reps/Minutes x5 Comments occasional cue for neutral pelvis, better core with small lift Manual Therapy Treatment Soft Tissue Mobilization psoas, iliacus Body Location R>L Mobilization Type Myofascial Release,Sustained Pressure Intensity/Depth Moderate Body Position Hooklying Comments gentle pressure with breath exhale Joint Mobilizations distraction Joint long leg pull Grade II Body Position Supine Comments with slight rotation both directions posterior hip capsule mobilization Joint inferior and lateral glides with manual traction Grade III Comments Pt decreased but still little hesitant regarding lateral glides but reports inferior glide feels good R tighter than L PT-OP-T Assessment and Plan Start: 12/07/19 11:58 Freq: Status: Active Protocol: Document 01/07/20 07:31 SP (Rec: 01/07/20 09:23 SP [id number]) Physical Therapy Assessment Goals Five Impairment posterior hip capsule tightness with decreased ROM of hip flexion/extension Longterm Goal (LTG) Marianne demonstrates full pain free ROM of B hips and has improved mobility of the posterior hip capsule to allow for full hip flexion with daily activities LTG Duration 8 weeks Four Impairment Piriformis tightness contributing to sciatic pain Short Term Goal (STG) Marianne is educated on stretches to release the piriformis muscle as well as educated on decreased gluteal tightness with standing to decrease c/o sciatic symptoms STG Duration 4 weeks Three Impairment Decreased strength of the transverse abdominal muscles and pelvic floor Short Term Goal (STG) Marianne is able to sustain a pelvic floor and transverse abdominal contraction x 10 seconds STG Duration 4 weeks Dam Tender Assistant Goal (LTG) Marianne is able to perform dynamic lumbar and SI stabilization exercises for improved support of the low back and SI joint. LTG Duration 8 weeks Two Impairment Lumbar paraspinal tightness and shortening of the muscles Short Term Goal (STG) Marianne is educated on specific stretches she can do to lengthen the lumbar paraspinals STG Duration 4 weeks One Impairment low back and sacral pain with intermittent sciatic symptoms down B post LE Longterm Goal (LTG) Marianne reports decreased episodes of LBP and sacral pain and is no longer experiencing sciatic symptoms down the posterior B LE LTG Duration 8 weeks Assessment Summary Assessment Pt give good feedback regarding very gentle hip mobes w/ trying to relax and allow distraction R>L guards. Reviewed HEP and cuing required for PPT and TA engagement during LE movements , hasn't been focusing on pelvic positioning as much as LE movement improved end of tx , still a challenge w/ comment good tiring internal pelvis mm and adductors while having a balance of sacral extension today. Continue progress core strengthening with quality stabilization and no adverse affects of nervy feeling. Physical Therapy Plan Frequency and Duration Frequency of Treatment 2x/Week Duration of Treatment 8 Plan of Care Start Date 12/07/19 Plan of Care End Date 02/01/20 Therapeutic Interventions Therapeutic Interventions Home Exercise Program,Joint Mobilizations,Manual Therapy, Neuromuscular Re-education, Patient/Caregiver Education, Self-Care/Home Management,Soft Tissue Mobilization, Therapeutic Exercises Next Visit Focus/Plan Next Note Type Treatment Note Next Visit Plan Assess response to STMs to psoas, hip mobs, TA trng with HEP. Continue per PT POC: to work on SI stabilization, try posterior hip capsule mobilizations again as Marianne lacks full hip flexion, continue to work on releasing the piriformis, recheck SI and sacral position next visit.
--- NOTE | 2020-01-12 13:59 | PT.OTN ---
Current Diagnoses Lumbago with sciatica, unspecified side (01/12/20) Physical Therapy Treatment Note PT-OP-A Visit Information Start: 12/07/19 11:58 Freq: Status: Active Protocol: Document 01/12/20 12:02 [facility] (Rec: 01/12/20 12:09 [facility] [id number]) Out-Patient Physical Therapy Visit Information Visit Information Visit Type Treatment Note Visit Start Time 12:00 Visit Stop Time 12:45 Total Visit Minutes 45 Visit Number 6 Number of BOBBIN DRIER Visits 0 PT-OP-B Current Condition Start: 12/07/19 11:58 Freq: Status: Active Protocol: Document 12/07/19 13:43 [facility] (Rec: 12/07/19 13:55 [facility] [id number]) Current Condition History of Current Condition Onset Date ongoing complaints of back pain History of Current Condition When she was with her daughter 10 years ago the pain began. She was 9.5 #. 27 hour labor. Vaginal . Since then, It has been coming and going since then but this year she has had to take two days off of work due to so much pain. Sciatic pain that would make her drop her leg. The pain can change sides. She has been getting regular health care liaison. She has been feeling improvement with that. Feels like she isn't able to keep her core engaged in standing. She did try yoga this fall but that didn't change her symptoms. PT-OP-C Subjective Start: 12/07/19 11:58 Freq: Status: Active Protocol: Document 01/12/20 12:02 [facility] (Rec: 01/12/20 12:09 [facility] [id number]) OP-PT Subjective Patient Comments Patient Comments The fatigue into her legs is getting a little better, she is still feeling fatigued especially after walks. She hasn't had any episodes of the nerve pain Patient Reported Progress Improving PT-OP-F Manual Assessment Start: 12/07/19 11:58 Freq: Status: Active Protocol: Document 12/07/19 17:46 [facility] (Rec: 12/07/19 17:53 [facility] [id number]) Manual Assessments Soft Tissue Assessment Soft Tissue Mobility Assessment tightness of the lumbar parapspinals, quadratus lumborum, piriformis B, obturator internus, coccygues Joint Mobility Assessment Joint Mobility Assessment decreased sacral movement into counternutation, decreased posterior hip capsule mobility B PT-OP-J Posture/Palpation/Skin Start: 12/07/19 11:58 Freq: Status: Active Protocol: Document 12/07/19 17:46 [facility] (Rec: 12/07/19 17:53 [facility] [id number]) Posture Evaluation Comments Posture Comments flattened lumbar curve with patient placing strain on the anterior hips Palpation Assessment Location piriformis Palpation Location B piriformis Palpation Findings Soft Tissue Tightness,Spasm, Muscle Guarding,Tenderness lumbar paraspinals Palpation Location lumbar paraspinals Palpation Findings Soft Tissue Tightness,Muscle Guarding,Tenderness PT-OP-K Range of Motion Start: 12/07/19 11:58 Freq: Status: Active Protocol: Document 12/07/19 17:46 [facility] (Rec: 12/07/19 17:53 [facility] [id number]) Lumbar Spine Range of Motion Lumbar Spine Active Testing Position Standing Comments WNL but pain is increased with lumbar extension Hip Goniometric Range of Motion Hip ROM Limitations Hip ROM Limitations Soft Tissue Tightness Comments decreased hip flexion B to 110 degrees with posterior hip capsule tightness PT-OP-L Special Tests Start: 12/07/19 11:58 Freq: Status: Active Protocol: Document 12/07/19 17:46 [facility] (Rec: 12/07/19 17:53 [facility] [id number]) Special Tests Lumbar Spine Special Tests Other- 1 Test Results + ASLR test on the right for left side unlocking of the SI joint PT-OP-M Strength Start: 12/07/19 11:58 Freq: Status: Active Protocol: Document 12/07/19 17:46 [facility] (Rec: 12/07/19 17:53 [facility] [id number]) Trunk Strength Trunk Manual Muscle Testing Testing Position Supine Core Stabilization Decreased core stability of pelvic floor and Transverse abdominal musculature PT-OP-Q Treatments Start: 12/07/19 11:58 Freq: Status: Active Protocol: Document 01/12/20 13:52 [facility] (Rec: 01/12/20 13:58 [facility] [id number]) Therapeutic Exercises Supine Exercises TA heel slides Supine Exercise Name x5 R and L, then alternate x3 Reps/Minutes x10 Comments cuing TA and pelvis PPT comfort rang, not full ext ( challenges pelvis pos) happy baby Supine Exercise Name happy baby stretch Reps/Minutes hold 2-3 minutes hip abduction with theraband Supine Exercise Name hip abduction with theraband Resistance Green TB (#2 HEP) Reps/Minutes x 10 reps pause 2 sec comfort range Comments towel under buttocks suspend sacrum, TA cuing mid range pelvis ball squeeze with pelvic floor activation Supine Exercise Name ball squeeze with pelvic floor activation Resistance small purple ball (small pillow) Reps/Minutes 10 reps x 5 sec hold Comments towel under buttocks suspend sacrum, TA cuing mid range pelvis TA facilitation with marches Supine Exercise Name TA facilitation with marches Side bilateral Reps/Minutes 12 minutes Comments bent knee fallouts, marches, heel slides on and off the table iliopsoas stretch in darrel test position Supine Exercise Name iliopsoas stretch in darrel test position Side bilateral Reps/Minutes hold 60 sec Comments with contract/relax Other Exercises jose pose Other Exercise Name jose pose Side bilateral Comments with hands walked out to left combined with STM L piriformis quadraped cat cow and sidebends Reps/Minutes x 10 each Comments side bends (tail wag looking) cued for elevation/ level R pelvis multif fac Manual Therapy Treatment Joint Mobilizations sacral counternutation Joint MET for sacral counter nutation Body Position Sidelying Reps/Duration 5 reps posterior hip capsule mobilization Joint inferior and lateral glides with manual traction Grade III Comments Marianne tolerated this well today and notes it feels good now in her sacrum. She had improved hip flexion today following the hip capsule mobilizations Neuro Re-Education Treatment Other Activities EMG biofeedback for neuroeducation of the pelvic floor Details 10 Comments looked at resting tone of the pelvic floor which started at 2.5 uv. Marianne notes she often doesn't feel that she empties her bladder on the first attempt. HEr resting tone being guarded may be contributing to that. We worked today and relaxed awareness of the pelvic floor and she realized she clenches here quite a bit PT-OP-T Assessment and Plan Start: 12/07/19 11:58 Freq: Status: Active Protocol: Document 01/12/20 13:52 [facility] (Rec: 01/12/20 13:58 [facility] [id number]) Physical Therapy Assessment Assessment Summary Assessment Good tolerance today for treatment. Marianne is starting to tolerate more and hasn't had a flare up with the sciatic sx. I was able to improve hip flexion ROM today following posterior capsule mobilization. She realizes how much she guards in the sacral/gluteal region when she is standing. With EMG biofeedback here resting tone was elevated. She was able to relax her pelvic floor to get this to drop. Her homework this week was to start working on relaxation of the pelvic floor and then we will start working towards improved endurance as this was limited today on EMG biofeedback. Physical Therapy Plan Frequency and Duration Frequency of Treatment 2x/Week Duration of Treatment 8 Plan of Care Start Date 12/07/19 Plan of Care End Date 02/01/20 Therapeutic Interventions Therapeutic Interventions Home Exercise Program,Joint Mobilizations,Manual Therapy, Neuromuscular Re-education, Patient/Caregiver Education, Self-Care/Home Management,Soft Tissue Mobilization, Therapeutic Exercises Next Visit Focus/Plan Next Note Type Treatment Note Next Visit Plan Continue with EMG biofeedback, begin endurance training of the pelvic floor.
--- NOTE | 2020-01-19 14:29 | PT.OTN ---
Current Diagnoses Lumbago with sciatica, unspecified side (01/19/20) Physical Therapy Treatment Note PT-OP-A Visit Information Start: 12/07/19 11:58 Freq: Status: Active Protocol: Document 01/19/20 14:23 [facility] (Rec: 01/19/20 14:29 [facility] [id number]) Out-Patient Physical Therapy Visit Information Visit Information Visit Type Treatment Note Visit Start Time 12:00 Visit Stop Time 12:45 Total Visit Minutes 45 Visit Number 7 Number of ELECTRONIC ENGINEERING DRAFTSPERSON Visits 0 PT-OP-B Current Condition Start: 12/07/19 11:58 Freq: Status: Active Protocol: Document 12/07/19 13:43 [facility] (Rec: 12/07/19 13:55 [facility] [id number]) Current Condition History of Current Condition Onset Date ongoing complaints of back pain History of Current Condition When she was with her daughter 10 years ago the pain began. She was 9.5 #. 27 hour labor. Vaginal . Since then, It has been coming and going since then but this year she has had to take two days off of work due to so much pain. Sciatic pain that would make her drop her leg. The pain can change sides. She has been getting regular palliative care nurse practitioner. She has been feeling improvement with that. Feels like she isn't able to keep her core engaged in standing. She did try yoga this fall but that didn't change her symptoms. PT-OP-C Subjective Start: 12/07/19 11:58 Freq: Status: Active Protocol: Document 01/19/20 14:23 [facility] (Rec: 01/19/20 14:29 [facility] [id number]) OP-PT Subjective Patient Comments Patient Comments Marianne notes she hasn't had a flare up of nerve symptoms. she has been goign for walks has to really think about relaxing her gluteals. She is still getting the fatigue down her legs so is taking it slow . She realizes how much she contracted her gluteals in standing PT-OP-F Manual Assessment Start: 12/07/19 11:58 Freq: Status: Active Protocol: Document 12/07/19 17:46 [facility] (Rec: 12/07/19 17:53 [facility] [id number]) Manual Assessments Soft Tissue Assessment Soft Tissue Mobility Assessment tightness of the lumbar parapspinals, quadratus lumborum, piriformis B, obturator internus, coccygues Joint Mobility Assessment Joint Mobility Assessment decreased sacral movement into counternutation, decreased posterior hip capsule mobility B PT-OP-J Posture/Palpation/Skin Start: 12/07/19 11:58 Freq: Status: Active Protocol: Document 12/07/19 17:46 [facility] (Rec: 12/07/19 17:53 [facility] [id number]) Posture Evaluation Comments Posture Comments flattened lumbar curve with patient placing strain on the anterior hips Palpation Assessment Location piriformis Palpation Location B piriformis Palpation Findings Soft Tissue Tightness,Spasm, Muscle Guarding,Tenderness lumbar paraspinals Palpation Location lumbar paraspinals Palpation Findings Soft Tissue Tightness,Muscle Guarding,Tenderness PT-OP-K Range of Motion Start: 12/07/19 11:58 Freq: Status: Active Protocol: Document 12/07/19 17:46 [facility] (Rec: 12/07/19 17:53 [facility] [id number]) Lumbar Spine Range of Motion Lumbar Spine Active Testing Position Standing Comments WNL but pain is increased with lumbar extension Hip Goniometric Range of Motion Hip ROM Limitations Hip ROM Limitations Soft Tissue Tightness Comments decreased hip flexion B to 110 degrees with posterior hip capsule tightness PT-OP-L Special Tests Start: 12/07/19 11:58 Freq: Status: Active Protocol: Document 12/07/19 17:46 [facility] (Rec: 12/07/19 17:53 [facility] [id number]) Special Tests Lumbar Spine Special Tests Other- 1 Test Results + ASLR test on the right for left side unlocking of the SI joint PT-OP-M Strength Start: 12/07/19 11:58 Freq: Status: Active Protocol: Document 12/07/19 17:46 [facility] (Rec: 12/07/19 17:53 [facility] [id number]) Trunk Strength Trunk Manual Muscle Testing Testing Position Supine Core Stabilization Decreased core stability of pelvic floor and Transverse abdominal musculature PT-OP-Q Treatments Start: 12/07/19 11:58 Freq: Status: Active Protocol: Document 01/19/20 14:23 [facility] (Rec: 01/19/20 14:29 [facility] [id number]) Therapeutic Exercises Supine Exercises 1/2 foam roll thoracic stretch Supine Exercise Name 1/2 foam roll thoracic stretch Reps/Minutes 4 min TA heel slides Supine Exercise Name x5 R and L, then alternate x3 Reps/Minutes x10 Comments cuing TA and pelvis PPT comfort rang, not full ext ( challenges pelvis pos) happy baby Supine Exercise Name happy baby stretch Reps/Minutes hold 2-3 minutes TA facilitation with marches Supine Exercise Name TA facilitation with marches Side bilateral Reps/Minutes 12 minutes Comments bent knee fallouts, marches, heel slides on and off the table Other Exercises puppy dog pose with rock backs Comments for increased thoracic mobility at the thoracolumbar junction thoracic rotation with thread the needle Reps/Minutes x 5 reps each side jose pose Other Exercise Name jose pose Side bilateral Comments with hands walked out to left combined with STM L piriformis quadraped cat cow and sidebends Reps/Minutes x 10 each Comments side bends (tail wag looking) cued for elevation/ level R pelvis multif fac Manual Therapy Treatment Joint Mobilizations posterior hip capsule mobilization Joint inferior and lateral glides with manual traction Grade III Comments Marianne tolerated this well today and notes it feels good now in her sacrum. She had improved hip flexion today following the hip capsule mobilizations PT-OP-T Assessment and Plan Start: 12/07/19 11:58 Freq: Status: Active Protocol: Document 01/19/20 14:23 [facility] (Rec: 01/19/20 14:29 [facility] [id number]) Physical Therapy Assessment Assessment Summary Assessment Marianne is doing better with seating her hips in standing. What I noticed today is that she arches at L3-4 due to tightness in her thoracic spine. This hinge at L3-4 may be contributing to her leg weakness with walking. We worked on thoracic mobilty today and added in a half foam roll for her to stretch her thoracic spine. Right side hip still a litttle pinchy but much better. Improving TA stabilization Physical Therapy Plan Frequency and Duration Frequency of Treatment 2x/Week Duration of Treatment 8 Plan of Care Start Date 12/07/19 Plan of Care End Date 02/01/20 Therapeutic Interventions Therapeutic Interventions Home Exercise Program,Joint Mobilizations,Manual Therapy, Neuromuscular Re-education, Patient/Caregiver Education, Self-Care/Home Management,Soft Tissue Mobilization, Therapeutic Exercises
--- NOTE | 2020-01-26 13:51 | PT.OTN ---
Current Diagnoses Lumbago with sciatica, unspecified side (01/26/20) Physical Therapy Treatment Note PT-OP-A Visit Information Start: 12/07/19 11:58 Freq: Status: Active Protocol: Document 01/26/20 13:38 [facility] (Rec: 01/26/20 13:38 [facility] [id number]) Out-Patient Physical Therapy Visit Information Visit Information Visit Type Treatment Note Visit Start Time 12:00 Visit Stop Time 12:45 Total Visit Minutes 45 Visit Number 8 Number of ALL ROUND BUTCHER Visits 0 PT-OP-B Current Condition Start: 12/07/19 11:58 Freq: Status: Active Protocol: Document 12/07/19 13:43 [facility] (Rec: 12/07/19 13:55 [facility] [id number]) Current Condition History of Current Condition Onset Date ongoing complaints of back pain History of Current Condition When she was with her daughter 10 years ago the pain began. She was 9.5 #. 27 hour labor. Vaginal . Since then, It has been coming and going since then but this year she has had to take two days off of work due to so much pain. Sciatic pain that would make her drop her leg. The pain can change sides. She has been getting regular career development director. She has been feeling improvement with that. Feels like she isn't able to keep her core engaged in standing. She did try yoga this fall but that didn't change her symptoms. PT-OP-C Subjective Start: 12/07/19 11:58 Freq: Status: Active Protocol: Document 01/26/20 12:04 [facility] (Rec: 01/26/20 13:00 [facility] [id number]) OP-PT Subjective Patient Comments Patient Comments Had a nerve pain yesterday than wrapped down into the anterior right rip and thoracic. Still feels a wedge wotj hip flexior r>L but overall is feeling better. Marianne notes she walked the [address] this am and didn't feel the fatigue into her legs Patient Reported Progress Improving PT-OP-F Manual Assessment Start: 12/07/19 11:58 Freq: Status: Active Protocol: Document 12/07/19 17:46 [facility] (Rec: 12/07/19 17:53 [facility] [id number]) Manual Assessments Soft Tissue Assessment Soft Tissue Mobility Assessment tightness of the lumbar parapspinals, quadratus lumborum, piriformis B, obturator internus, coccygues Joint Mobility Assessment Joint Mobility Assessment decreased sacral movement into counternutation, decreased posterior hip capsule mobility B PT-OP-J Posture/Palpation/Skin Start: 12/07/19 11:58 Freq: Status: Active Protocol: Document 12/07/19 17:46 [facility] (Rec: 12/07/19 17:53 [facility] [id number]) Posture Evaluation Comments Posture Comments flattened lumbar curve with patient placing strain on the anterior hips Palpation Assessment Location piriformis Palpation Location B piriformis Palpation Findings Soft Tissue Tightness,Spasm, Muscle Guarding,Tenderness lumbar paraspinals Palpation Location lumbar paraspinals Palpation Findings Soft Tissue Tightness,Muscle Guarding,Tenderness PT-OP-K Range of Motion Start: 12/07/19 11:58 Freq: Status: Active Protocol: Document 12/07/19 17:46 [facility] (Rec: 12/07/19 17:53 [facility] [id number]) Lumbar Spine Range of Motion Lumbar Spine Active Testing Position Standing Comments WNL but pain is increased with lumbar extension Hip Goniometric Range of Motion Hip ROM Limitations Hip ROM Limitations Soft Tissue Tightness Comments decreased hip flexion B to 110 degrees with posterior hip capsule tightness PT-OP-L Special Tests Start: 12/07/19 11:58 Freq: Status: Active Protocol: Document 12/07/19 17:46 [facility] (Rec: 12/07/19 17:53 [facility] [id number]) Special Tests Lumbar Spine Special Tests Other- 1 Test Results + ASLR test on the right for left side unlocking of the SI joint PT-OP-M Strength Start: 12/07/19 11:58 Freq: Status: Active Protocol: Document 12/07/19 17:46 [facility] (Rec: 12/07/19 17:53 [facility] [id number]) Trunk Strength Trunk Manual Muscle Testing Testing Position Supine Core Stabilization Decreased core stability of pelvic floor and Transverse abdominal musculature PT-OP-Q Treatments Start: 12/07/19 11:58 Freq: Status: Active Protocol: Document 01/26/20 13:39 [facility] (Rec: 01/26/20 13:50 [facility] [id number]) Therapeutic Exercises Supine Exercises pelvic floor activation with EMG biofeedbacl Supine Exercise Name EMG biofeedback with pelvic floor activation Reps/Minutes 10 reps of 5 second hold and 10 second relax Comments resting tone improved today at 1.5 uv. iliopsoas stretch in darrel test position Supine Exercise Name iliopsoas stretch in darrel test position Side bilateral Reps/Minutes hold 60 sec Comments with contract/relax Other Exercises puppy dog pose with rock backs Comments for increased thoracic mobility at the thoracolumbar junction thoracic rotation with thread the needle Reps/Minutes x 5 reps each side jose pose Other Exercise Name jose pose Side bilateral Comments with hands walked out to left combined with STM L piriformis quadraped cat cow and sidebends Reps/Minutes x 10 each Comments side bends (tail wag looking) cued for elevation/ level R pelvis multif fac PT-OP-T Assessment and Plan Start: 12/07/19 11:58 Freq: Status: Active Protocol: Document 01/26/20 13:39 [facility] (Rec: 01/26/20 13:50 [facility] [id number]) Physical Therapy Assessment Goals Five Impairment posterior hip capsule tightness with decreased ROM of hip flexion/extension Pathology Supervisor Goal (LTG) Marianne demonstrates full pain free ROM of B hips and has improved mobility of the posterior hip capsule to allow for full hip flexion with daily activities Good progress, still some residual hip capsule rightness R>L Marianne is working on both relaxing her gluteals at rest as well as working on her hip hinging exercises LTG Duration 8 weeks Four Impairment Piriformis tightness contributing to sciatic pain Short Term Goal (STG) Marianne is educated on stretches to release the piriformis muscle as well as educated on decreased gluteal tightness with standing to decrease c/o sciatic symptoms GOOD PROGRESS STG Duration 4 weeks Three Impairment Decreased strength of the transverse abdominal muscles and pelvic floor Short Term Goal (STG) Marianne is able to sustain a pelvic floor and transverse abdominal contraction x 10 seconds SOme progress, Marianne has been able to work towards 5 second hold time however this took a while as she initially had guarding with her pelvic floor at rest and we needed to calm this down before progressing strength STG Duration 4 weeks Pathology Supervisor Goal (LTG) Marianne is able to perform dynamic lumbar and SI stabilization exercises for improved support of the low back and SI joint. Excellent progress LTG Duration 8 weeks Two Impairment Lumbar paraspinal tightness and shortening of the muscles Short Term Goal (STG) Marianne is educated on specific stretches she can do to lengthen the lumbar paraspinals Goal met STG Duration 4 weeks One Impairment low back and sacral pain with intermittent sciatic symptoms down B post LE Pathology Supervisor Goal (LTG) Marianne reports decreased episodes of LBP and sacral pain and is no longer experiencing sciatic symptoms down the posterior B LE Good progress with overall decreased c/o sciatic episodes LTG Duration 8 weeks Assessment Summary Assessment Marianne continues to progress with PT. She is demonstrating improved core stability as well as ablet o do more of the stertches now to decompress her spine. I have started her with pelvic floor activation as well today as she has been ablet o relax her resting tone to 1.5 uv on EMG biofeedback. Marianne would benefit from a few additional visits of PT that need to be cleared through her insurance first. Physical Therapy Plan Frequency and Duration Frequency of Treatment 1x/Week Duration of Treatment 8 Plan of Care Start Date 01/26/20 Plan of Care End Date 03/29/20 Therapeutic Interventions Therapeutic Interventions Home Exercise Program,Joint Mobilizations,Manual Therapy, Neuromuscular Re-education, Patient/Caregiver Education, Self-Care/Home Management,Soft Tissue Mobilization, Therapeutic Exercises Next Visit Focus/Plan Next Note Type Treatment Note Next Visit Plan Continue with dynamic lumbar stabilization, pelvic floor stabilization, sacral mobilzations into counternutation and posterior hip capsule mobilizations. Recheck thoracic mobility next visit
--- NOTE | 2020-02-02 14:05 | PT.OTN ---
Current Diagnoses Lumbago with sciatica, unspecified side (02/02/20) Physical Therapy Treatment Note PT-OP-A Visit Information Start: 12/07/19 11:58 Freq: Status: Active Protocol: Document 02/02/20 13:59 [facility] (Rec: 02/02/20 14:04 [facility] [id number]) Out-Patient Physical Therapy Visit Information Visit Information Visit Type Treatment Note Visit Start Time 12:00 Visit Stop Time 12:45 Total Visit Minutes 45 Visit Number 9 Evaluation Information Evaluation Date 12/07/19 PT-OP-B Current Condition Start: 12/07/19 11:58 Freq: Status: Active Protocol: Document 12/07/19 13:43 [facility] (Rec: 12/07/19 13:55 [facility] [id number]) Current Condition History of Current Condition Onset Date ongoing complaints of back pain History of Current Condition When she was with her daughter 10 years ago the pain began. She was 9.5 #. 27 hour labor. Vaginal . Since then, It has been coming and going since then but this year she has had to take two days off of work due to so much pain. Sciatic pain that would make her drop her leg. The pain can change sides. 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 She has been feeling improvement with that. Feels like she isn't able to keep her core engaged in standing. She did try yoga this fall but that didn't change her symptoms. PT-OP-C Subjective Start: 12/07/19 11:58 Freq: Status: Active Protocol: Document 02/02/20 12:05 [facility] (Rec: 02/02/20 12:08 [facility] [id number]) OP-PT Subjective Patient Comments Patient Comments Pt reports er left buttock was a little bitty last night but today her symptoms are better . She hiked [place] and did feel the fatigue in her legs. She would stop and stretch. Patient Reported Progress Improving PT-OP-F Manual Assessment Start: 12/07/19 11:58 Freq: Status: Active Protocol: Document 12/07/19 17:46 [facility] (Rec: 12/07/19 17:53 [facility] [id number]) Manual Assessments Soft Tissue Assessment Soft Tissue Mobility Assessment tightness of the lumbar parapspinals, quadratus lumborum, piriformis B, obturator internus, coccygues Joint Mobility Assessment Joint Mobility Assessment decreased sacral movement into counternutation, decreased posterior hip capsule mobility B PT-OP-J Posture/Palpation/Skin Start: 12/07/19 11:58 Freq: Status: Active Protocol: Document 12/07/19 17:46 [facility] (Rec: 12/07/19 17:53 [facility] [id number]) Posture Evaluation Comments Posture Comments flattened lumbar curve with patient placing strain on the anterior hips Palpation Assessment Location piriformis Palpation Location B piriformis Palpation Findings Soft Tissue Tightness,Spasm, Muscle Guarding,Tenderness lumbar paraspinals Palpation Location lumbar paraspinals Palpation Findings Soft Tissue Tightness,Muscle Guarding,Tenderness PT-OP-K Range of Motion Start: 12/07/19 11:58 Freq: Status: Active Protocol: Document 12/07/19 17:46 [facility] (Rec: 12/07/19 17:53 [facility] [id number]) Lumbar Spine Range of Motion Lumbar Spine Active Testing Position Standing Comments WNL but pain is increased with lumbar extension Hip Goniometric Range of Motion Hip ROM Limitations Hip ROM Limitations Soft Tissue Tightness Comments decreased hip flexion B to 110 degrees with posterior hip capsule tightness PT-OP-L Special Tests Start: 12/07/19 11:58 Freq: Status: Active Protocol: Document 12/07/19 17:46 [facility] (Rec: 12/07/19 17:53 [facility] [id number]) Special Tests Lumbar Spine Special Tests Other- 1 Test Results + ASLR test on the right for left side unlocking of the SI joint PT-OP-M Strength Start: 12/07/19 11:58 Freq: Status: Active Protocol: Document 12/07/19 17:46 [facility] (Rec: 12/07/19 17:53 [facility] [id number]) Trunk Strength Trunk Manual Muscle Testing Testing Position Supine Core Stabilization Decreased core stability of pelvic floor and Transverse abdominal musculature PT-OP-Q Treatments Start: 12/07/19 11:58 Freq: Status: Active Protocol: Document 02/02/20 12:08 [facility] (Rec: 02/02/20 12:53 [facility] [id number]) Therapeutic Exercises Supine Exercises TA heel slides Supine Exercise Name x5 R and L, then alternate x3 Reps/Minutes x10 Comments cuing TA and pelvis PPT comfort rang, not full ext ( challenges pelvis pos) TA facilitation with marches Supine Exercise Name TA facilitation with marches Side bilateral Reps/Minutes 12 minutes Comments bent knee fallouts, marches, heel slides on and off the table iliopsoas stretch in darrel test position Supine Exercise Name iliopsoas stretch in darrel test position Side bilateral Reps/Minutes hold 60 sec Comments with contract/relax Prone Exercises modified bird dog Prone Exercise Name heel slide intially then small lift Side bilateral Reps/Minutes x5 Comments occasional cue for neutral pelvis, better core with small lift Other Exercises 1 Other Exercise Name TA with opp arm lifts Reps/Minutes x 5 reps puppy dog pose with rock backs Comments for increased thoracic mobility at the thoracolumbar junction jose pose Other Exercise Name jose pose Side bilateral Comments with hands walked out to left combined with STM L piriformis quadraped cat cow and sidebends Reps/Minutes x 10 each Comments side bends (tail wag looking) cued for elevation/ level R pelvis multif fac Manual Therapy Treatment Joint Mobilizations posterior hip capsule mobilization Joint inferior and lateral glides with manual traction Grade III Comments Marianne tolerated this well today and notes it feels good now in her sacrum. She had improved hip flexion today following the hip capsule mobilizations PT-OP-T Assessment and Plan Start: 12/07/19 11:58 Freq: Status: Active Protocol: Document 02/02/20 13:59 [facility] (Rec: 02/02/20 14:04 [facility] [id number]) Physical Therapy Assessment Assessment Summary Assessment Marianne is doing better with her stabilization, she is still feeling some hip pinching with hip flexion but this is slowly improving, we worked on adding in opp arm and opp leg lifts today in quadruped Physical Therapy Plan Frequency and Duration Frequency of Treatment 1x/Week Duration of Treatment 8 Plan of Care Start Date 01/26/20 Plan of Care End Date 03/29/20 Next Visit Focus/Plan Next Note Type Treatment Note Next Visit Plan Continue with dynamic lumbar stabilization, pelvic floor stabilization, sacral mobilzations into counternutation and posterior hip capsule mobilizations. Recheck thoracic mobility next visit
--- NOTE | 2020-03-23 13:32 | PT.OTN ---
Current Diagnoses Lumbago with sciatica, unspecified side (03/22/20) Physical Therapy Treatment Note PT-OP-A Visit Information Start: 12/07/19 11:58 Freq: Status: Active Protocol: Document 03/22/20 10:30 [facility] (Rec: 03/23/20 13:32 [facility] [id number]) Out-Patient Physical Therapy Visit Information Visit Information Visit Type Treatment Note Visit Start Time 10:30 Visit Stop Time 11:15 Total Visit Minutes 45 Visit Number 10 PT-OP-B Current Condition Start: 12/07/19 11:58 Freq: Status: Active Protocol: Document 12/07/19 13:43 [facility] (Rec: 12/07/19 13:55 [facility] [id number]) Current Condition History of Current Condition Onset Date ongoing complaints of back pain History of Current Condition When she was with her daughter 10 years ago the pain began. She was 9.5 #. 27 hour labor. Vaginal . Since then, It has been coming and going since then but this year she has had to take two days off of work due to so much pain. Sciatic pain that would make her drop her leg. The pain can change sides. 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 She has been feeling improvement with that. Feels like she isn't able to keep her core engaged in standing. She did try yoga this fall but that didn't change her symptoms. PT-OP-C Subjective Start: 12/07/19 11:58 Freq: Status: Active Protocol: Document 03/22/20 10:30 [facility] (Rec: 03/23/20 13:32 [facility] [id number]) OP-PT Subjective Patient Comments Patient Comments Marianne reports she has been using the ball to sit on for work now and it has helped. She is still feeling limited with her walking as she still tends to get the weak feeling in the front of her legs. PT-OP-F Manual Assessment Start: 12/07/19 11:58 Freq: Status: Active Protocol: Document 12/07/19 17:46 [facility] (Rec: 12/07/19 17:53 [facility] [id number]) Manual Assessments Soft Tissue Assessment Soft Tissue Mobility Assessment tightness of the lumbar parapspinals, quadratus lumborum, piriformis B, obturator internus, coccygues Joint Mobility Assessment Joint Mobility Assessment decreased sacral movement into counternutation, decreased posterior hip capsule mobility B PT-OP-J Posture/Palpation/Skin Start: 12/07/19 11:58 Freq: Status: Active Protocol: Document 12/07/19 17:46 [facility] (Rec: 12/07/19 17:53 [facility] [id number]) Posture Evaluation Comments Posture Comments flattened lumbar curve with patient placing strain on the anterior hips Palpation Assessment Location piriformis Palpation Location B piriformis Palpation Findings Soft Tissue Tightness,Spasm, Muscle Guarding,Tenderness lumbar paraspinals Palpation Location lumbar paraspinals Palpation Findings Soft Tissue Tightness,Muscle Guarding,Tenderness PT-OP-K Range of Motion Start: 12/07/19 11:58 Freq: Status: Active Protocol: Document 12/07/19 17:46 [facility] (Rec: 12/07/19 17:53 [facility] [id number]) Lumbar Spine Range of Motion Lumbar Spine Active Testing Position Standing Comments WNL but pain is increased with lumbar extension Hip Goniometric Range of Motion Hip ROM Limitations Hip ROM Limitations Soft Tissue Tightness Comments decreased hip flexion B to 110 degrees with posterior hip capsule tightness PT-OP-L Special Tests Start: 12/07/19 11:58 Freq: Status: Active Protocol: Document 12/07/19 17:46 [facility] (Rec: 12/07/19 17:53 [facility] [id number]) Special Tests Lumbar Spine Special Tests Other- 1 Test Results + ASLR test on the right for left side unlocking of the SI joint PT-OP-M Strength Start: 12/07/19 11:58 Freq: Status: Active Protocol: Document 12/07/19 17:46 [facility] (Rec: 12/07/19 17:53 [facility] [id number]) Trunk Strength Trunk Manual Muscle Testing Testing Position Supine Core Stabilization Decreased core stability of pelvic floor and Transverse abdominal musculature PT-OP-Q Treatments Start: 12/07/19 11:58 Freq: Status: Active Protocol: Document 03/22/20 10:30 [facility] (Rec: 03/23/20 13:32 [facility] [id number]) Therapeutic Exercises Sidelying Exercises clam shells Sidelying Exercise Name clam shells Reps/Minutes 3 x 10 reps B Other Exercises jose pose Other Exercise Name jose pose Side bilateral Comments with hands walked out to left combined with STM L piriformis quadraped cat cow and sidebends Reps/Minutes x 10 each Comments side bends (tail wag looking) cued for elevation/ level R pelvis multif fac Manual Therapy Treatment Soft Tissue Mobilization psoas, iliacus Body Location R>L Mobilization Type Myofascial Release,Sustained Pressure Intensity/Depth Moderate Body Position Hooklying Comments gentle pressure with breath exhale Joint Mobilizations distraction Joint long leg pull Grade II Body Position Supine Comments with slight rotation both directions posterior hip capsule mobilization Joint inferior and lateral glides with manual traction Grade III Comments Marianne tolerated this well today and notes it feels good now in her sacrum. She had improved hip flexion today following the hip capsule mobilizations Self-Care/Home Management Treatment Education Patient Education Body Mechanics,Home Exercise Program,Joint Protection Other Education education on exercise other than walking including eliptical, bike, swimming. Pt given HEP handout PT-OP-T Assessment and Plan Start: 12/07/19 11:58 Freq: Status: Active Protocol: Document 03/22/20 10:30 [facility] (Rec: 03/23/20 13:32 [facility] [id number]) Physical Therapy Assessment Assessment Summary Assessment Marianne is showing improved stability of the SI joint as both march test and standing forward bend were negative today. She still gets some nerve irritation with walking. We talked today about biking , eliptical, and exercise in the pool as alternate exercise alternatives that may not put as much pressure on her spine . Marianne's dynamic exercises were progressed today and she would benefit from continued PT Physical Therapy Plan Frequency and Duration Frequency of Treatment 1x/Week Duration of Treatment 8 Plan of Care Start Date 01/26/20 Plan of Care End Date 03/29/20
--- NOTE | 2020-03-29 14:02 | PT.OTN ---
Current Diagnoses Lumbago with sciatica, unspecified side (03/29/20) Physical Therapy Treatment Note PT-OP-A Visit Information Start: 12/07/19 11:58 Freq: Status: Active Protocol: Document 03/29/20 13:55 [facility] (Rec: 03/29/20 14:02 [facility] [id number]) Out-Patient Physical Therapy Visit Information Visit Information Visit Type Treatment Note Visit Start Time 12:00 Visit Stop Time 12:45 Total Visit Minutes 45 Visit Number 11 PT-OP-B Current Condition Start: 12/07/19 11:58 Freq: Status: Active Protocol: Document 12/07/19 13:43 [facility] (Rec: 12/07/19 13:55 [facility] [id number]) Current Condition History of Current Condition Onset Date ongoing complaints of back pain History of Current Condition When she was with her daughter 10 years ago the pain began. She was 9.5 #. 27 hour labor. Vaginal . Since then, It has been coming and going since then but this year she has had to take two days off of work due to so much pain. Sciatic pain that would make her drop her leg. The pain can change sides. 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 She has been feeling improvement with that. Feels like she isn't able to keep her core engaged in standing. She did try yoga this fall but that didn't change her symptoms. PT-OP-C Subjective Start: 12/07/19 11:58 Freq: Status: Active Protocol: Document 03/29/20 13:55 [facility] (Rec: 03/29/20 14:02 [facility] [id number]) OP-PT Subjective Patient Comments Patient Comments pt reports she feels that she can get her low back to flatten to the floor now after her stretches. She still experiences fatigue in the front of her thight and hips with walking. PT-OP-F Manual Assessment Start: 12/07/19 11:58 Freq: Status: Active Protocol: Document 12/07/19 17:46 [facility] (Rec: 12/07/19 17:53 [facility] [id number]) Manual Assessments Soft Tissue Assessment Soft Tissue Mobility Assessment tightness of the lumbar parapspinals, quadratus lumborum, piriformis B, obturator internus, coccygues Joint Mobility Assessment Joint Mobility Assessment decreased sacral movement into counternutation, decreased posterior hip capsule mobility B PT-OP-J Posture/Palpation/Skin Start: 12/07/19 11:58 Freq: Status: Active Protocol: Document 12/07/19 17:46 [facility] (Rec: 12/07/19 17:53 [facility] [id number]) Posture Evaluation Comments Posture Comments flattened lumbar curve with patient placing strain on the anterior hips Palpation Assessment Location piriformis Palpation Location B piriformis Palpation Findings Soft Tissue Tightness,Spasm, Muscle Guarding,Tenderness lumbar paraspinals Palpation Location lumbar paraspinals Palpation Findings Soft Tissue Tightness,Muscle Guarding,Tenderness PT-OP-K Range of Motion Start: 12/07/19 11:58 Freq: Status: Active Protocol: Document 12/07/19 17:46 [facility] (Rec: 12/07/19 17:53 [facility] [id number]) Lumbar Spine Range of Motion Lumbar Spine Active Testing Position Standing Comments WNL but pain is increased with lumbar extension Hip Goniometric Range of Motion Hip ROM Limitations Hip ROM Limitations Soft Tissue Tightness Comments decreased hip flexion B to 110 degrees with posterior hip capsule tightness PT-OP-L Special Tests Start: 12/07/19 11:58 Freq: Status: Active Protocol: Document 12/07/19 17:46 [facility] (Rec: 12/07/19 17:53 [facility] [id number]) Special Tests Lumbar Spine Special Tests Other- 1 Test Results + ASLR test on the right for left side unlocking of the SI joint PT-OP-M Strength Start: 12/07/19 11:58 Freq: Status: Active Protocol: Document 12/07/19 17:46 [facility] (Rec: 12/07/19 17:53 [facility] [id number]) Trunk Strength Trunk Manual Muscle Testing Testing Position Supine Core Stabilization Decreased core stability of pelvic floor and Transverse abdominal musculature PT-OP-Q Treatments Start: 12/07/19 11:58 Freq: Status: Active Protocol: Document 03/29/20 13:55 [facility] (Rec: 03/29/20 14:02 [facility] [email or web address]) Therapeutic Exercises Supine Exercises happy baby Supine Exercise Name happy baby stretch Reps/Minutes hold 2-3 minutes TA facilitation with marches Supine Exercise Name TA facilitation with marches Side bilateral Reps/Minutes 12 minutes Comments bent knee fallouts, marches, heel slides on and off the table iliopsoas stretch in darrel test position Supine Exercise Name iliopsoas stretch in darrel test position Side bilateral Reps/Minutes hold 60 sec Comments with contract/relax Sidelying Exercises clam shells Sidelying Exercise Name clam shells Reps/Minutes 3 x 10 reps B Other Exercises quadraped cat cow and sidebends Reps/Minutes x 10 each Comments side bends (tail wag looking) cued for elevation/ level R pelvis multif fac Manual Therapy Treatment Soft Tissue Mobilization psoas, iliacus Body Location R>L Mobilization Type Myofascial Release,Sustained Pressure Intensity/Depth Moderate Body Position Hooklying Comments gentle pressure with breath exhale Joint Mobilizations posterior hip capsule mobilization Joint inferior and lateral glides with manual traction Grade III Comments Marianne tolerated this well today and notes it feels good now in her sacrum. She had improved hip flexion today following the hip capsule mobilizations PT-OP-T Assessment and Plan Start: 12/07/19 11:58 Freq: Status: Active Protocol: Document 03/29/20 13:55 [facility] (Rec: 03/29/20 14:02 [facility] [id number]) Physical Therapy Assessment Assessment Summary Assessment Marianne continues to demonstrate good awareness with her exercises. Despite this she is still experiencing a fatigue like pain into the front of her pelvis and thighs with walking/hiking. I did give her information on prolotherapy today Physical Therapy Plan Frequency and Duration Frequency of Treatment 1x/Week Duration of Treatment 8 Plan of Care Start Date 01/26/20 Plan of Care End Date 03/29/20 Next Visit Focus/Plan Next Note Type Treatment Note Next Visit Plan pt may hold off on next visit and schedule a Xray to look further into her back. She does not manual work on her hips really helps. If she keeps next visit work on hip distraction and posterior glide
--- NOTE | 2020-04-05 13:27 | PT.OTN ---
Current Diagnoses Lumbago with sciatica, unspecified side (04/05/20) Physical Therapy Treatment Note PT-OP-A Visit Information Start: 12/07/19 11:58 Freq: Status: Active Protocol: Document 04/05/20 13:16 [facility] (Rec: 04/05/20 13:27 [facility] [id number]) Out-Patient Physical Therapy Visit Information Visit Information Visit Type Treatment Note Visit Start Time 12:00 Visit Stop Time 12:45 Total Visit Minutes 45 Visit Number 12 PT-OP-B Current Condition Start: 12/07/19 11:58 Freq: Status: Active Protocol: Document 12/07/19 13:43 [facility] (Rec: 12/07/19 13:55 [facility] [id number]) Current Condition History of Current Condition Onset Date ongoing complaints of back pain History of Current Condition When she was with her daughter 10 years ago the pain began. She was 9.5 #. 27 hour labor. Vaginal . Since then, It has been coming and going since then but this year she has had to take two days off of work due to so much pain. Sciatic pain that would make her drop her leg. The pain can change sides. 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 She has been feeling improvement with that. Feels like she isn't able to keep her core engaged in standing. She did try yoga this fall but that didn't change her symptoms. PT-OP-C Subjective Start: 12/07/19 11:58 Freq: Status: Active Protocol: Document 04/05/20 13:16 [facility] (Rec: 04/05/20 13:27 [facility] [id number]) OP-PT Subjective Patient Comments Patient Comments Marianne reports she has continued to work on her core. She hasn't had the bad flare up since January with the sciatic pain symptoms. She still will experience muscle tightness in her glutes. She is working on not clenching her gluteals in standing and has been able to engage her core in standing. PT-OP-F Manual Assessment Start: 12/07/19 11:58 Freq: Status: Active Protocol: Document 12/07/19 17:46 [facility] (Rec: 12/07/19 17:53 [facility] [id number]) Manual Assessments Soft Tissue Assessment Soft Tissue Mobility Assessment tightness of the lumbar parapspinals, quadratus lumborum, piriformis B, obturator internus, coccygues Joint Mobility Assessment Joint Mobility Assessment decreased sacral movement into counternutation, decreased posterior hip capsule mobility B PT-OP-J Posture/Palpation/Skin Start: 12/07/19 11:58 Freq: Status: Active Protocol: Document 12/07/19 17:46 [facility] (Rec: 12/07/19 17:53 [facility] [id number]) Posture Evaluation Comments Posture Comments flattened lumbar curve with patient placing strain on the anterior hips Palpation Assessment Location piriformis Palpation Location B piriformis Palpation Findings Soft Tissue Tightness,Spasm, Muscle Guarding,Tenderness lumbar paraspinals Palpation Location lumbar paraspinals Palpation Findings Soft Tissue Tightness,Muscle Guarding,Tenderness PT-OP-K Range of Motion Start: 12/07/19 11:58 Freq: Status: Active Protocol: Document 12/07/19 17:46 [facility] (Rec: 12/07/19 17:53 [facility] [id number]) Lumbar Spine Range of Motion Lumbar Spine Active Testing Position Standing Comments WNL but pain is increased with lumbar extension Hip Goniometric Range of Motion Hip ROM Limitations Hip ROM Limitations Soft Tissue Tightness Comments decreased hip flexion B to 110 degrees with posterior hip capsule tightness PT-OP-L Special Tests Start: 12/07/19 11:58 Freq: Status: Active Protocol: Document 12/07/19 17:46 [facility] (Rec: 12/07/19 17:53 [facility] [id number]) Special Tests Lumbar Spine Special Tests Other- 1 Test Results + ASLR test on the right for left side unlocking of the SI joint PT-OP-M Strength Start: 12/07/19 11:58 Freq: Status: Active Protocol: Document 12/07/19 17:46 [facility] (Rec: 12/07/19 17:53 [facility] [id number]) Trunk Strength Trunk Manual Muscle Testing Testing Position Supine Core Stabilization Decreased core stability of pelvic floor and Transverse abdominal musculature PT-OP-Q Treatments Start: 12/07/19 11:58 Freq: Status: Active Protocol: Document 04/05/20 13:16 [facility] (Rec: 04/05/20 13:27 [facility] [id number]) Manual Therapy Treatment Soft Tissue Mobilization psoas, iliacus Comments pt educated on how to use a roller on her quads to help release muscle tension. lumbar paraspinal STM Body Location lumbar paraspinals Mobilization Type Myofascial Release,Rolling Intensity/Depth Moderate Body Position Prone Comments In quadruped/child's pose Joint Mobilizations sacral counternutation Joint MET for sacral counter nutation Body Position Prone Reps/Duration 5 reps posterior hip capsule mobilization Joint inferior and lateral glides with manual traction Grade III Comments Marianne tolerated this well today and notes it feels good now in her sacrum. She had improved hip flexion today following the hip capsule mobilizations PT-OP-T Assessment and Plan Start: 12/07/19 11:58 Freq: Status: Active Protocol: Document 04/05/20 13:16 [facility] (Rec: 04/05/20 13:27 [facility] [id number]) Physical Therapy Assessment Assessment Summary Assessment Pt on her last scheduled visit today. She has done well with her home program and will continue to work on stabilization. I did touch base again today on a SI belt for hiking and or prolotherapy as a means for providing increased SI stabilization. At this point Marianne will be discharged from PT Physical Therapy Plan Discharge Physical Therapy Discharge Reasons Goals Met
--- NOTE | 2020-04-05 13:32 | PT.OPDS ---
Current Diagnoses Lumbago with sciatica, unspecified side (04/05/20) Visit Care Team Role Provider Type CRISTIAN Hdez Attending Provider Non-Staff Primary Care Provider Referring Provider Specialty: Medical Address: [address] [place] [address], [place], [address] Email: Visit Number Visit Number 12 Discharge Summary PT-OP-B Current Condition Start: 12/07/19 11:58 Freq: Status: Active Protocol: Document 12/07/19 13:43 [facility] (Rec: 12/07/19 13:55 [facility] [id number]) Current Condition History of Current Condition Onset Date ongoing complaints of back pain History of Current Condition When she was with her daughter 10 years ago the pain began. She was 9.5 #. 27 hour labor. Vaginal . Since then, It has been coming and going since then but this year she has had to take two days off of work due to so much pain. Sciatic pain that would make her drop her leg. The pain can change sides. 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 She has been feeling improvement with that. Feels like she isn't able to keep her core engaged in standing. She did try yoga this fall but that didn't change her symptoms. PT-OP-C Subjective Start: 12/07/19 11:58 Freq: Status: Active Protocol: Document 04/05/20 13:16 [facility] (Rec: 04/05/20 13:27 [facility] [id number]) OP-PT Subjective Patient Comments Patient Comments Marianne reports she has continued to work on her core. She hasn't had the bad flare up since January with the sciatic pain symptoms. She still will experience muscle tightness in her glutes. She is working on not clenching her gluteals in standing and has been able to engage her core in standing. PT-OP-F Manual Assessment Start: 12/07/19 11:58 Freq: Status: Active Protocol: Document 12/07/19 17:46 [facility] (Rec: 12/07/19 17:53 [facility] [id number]) Manual Assessments Soft Tissue Assessment Soft Tissue Mobility Assessment tightness of the lumbar parapspinals, quadratus lumborum, piriformis B, obturator internus, coccygues Joint Mobility Assessment Joint Mobility Assessment decreased sacral movement into counternutation, decreased posterior hip capsule mobility B PT-OP-J Posture/Palpation/Skin Start: 12/07/19 11:58 Freq: Status: Active Protocol: Document 12/07/19 17:46 [facility] (Rec: 12/07/19 17:53 [facility] [id number]) Posture Evaluation Comments Posture Comments flattened lumbar curve with patient placing strain on the anterior hips Palpation Assessment Location piriformis Palpation Location B piriformis Palpation Findings Soft Tissue Tightness,Spasm, Muscle Guarding,Tenderness lumbar paraspinals Palpation Location lumbar paraspinals Palpation Findings Soft Tissue Tightness,Muscle Guarding,Tenderness PT-OP-K Range of Motion Start: 12/07/19 11:58 Freq: Status: Active Protocol: Document 12/07/19 17:46 [facility] (Rec: 12/07/19 17:53 [facility] [id number]) Lumbar Spine Range of Motion Lumbar Spine Active Testing Position Standing Comments WNL but pain is increased with lumbar extension Hip Goniometric Range of Motion Hip ROM Limitations Hip ROM Limitations Soft Tissue Tightness Comments decreased hip flexion B to 110 degrees with posterior hip capsule tightness PT-OP-L Special Tests Start: 12/07/19 11:58 Freq: Status: Active Protocol: Document 12/07/19 17:46 [facility] (Rec: 12/07/19 17:53 [facility] [id number]) Special Tests Lumbar Spine Special Tests Other- 1 Test Results + ASLR test on the right for left side unlocking of the SI joint PT-OP-M Strength Start: 12/07/19 11:58 Freq: Status: Active Protocol: Document 12/07/19 17:46 [facility] (Rec: 12/07/19 17:53 [facility] [id number]) Trunk Strength Trunk Manual Muscle Testing Testing Position Supine Core Stabilization Decreased core stability of pelvic floor and Transverse abdominal musculature PT-OP-T Assessment and Plan Start: 12/07/19 11:58 Freq: Status: Active Protocol: Document 04/05/20 13:16 [facility] (Rec: 04/05/20 13:27 [facility] [id number]) Physical Therapy Assessment Goals Five Impairment posterior hip capsule tightness with decreased ROM of hip flexion/extension [employer] Goal (LTG) Marianne demonstrates full pain free ROM of B hips and has improved mobility of the posterior hip capsule to allow for full hip flexion with daily activities Good progress, still some residual hip capsule rightness R>L Marianne is working on both relaxing her gluteals at rest as well as working on her hip hinging exercises Four Impairment Piriformis tightness contributing to sciatic pain Short Term Goal (STG) Marianne is educated on stretches to release the piriformis muscle as well as educated on decreased gluteal tightness with standing to decrease c/o sciatic symptoms Pt is independent with HEP, she still experiences intermittent c/o muscle tightness and spasm Three Impairment Decreased strength of the transverse abdominal muscles and pelvic floor Short Term Goal (STG) Marianne is able to sustain a pelvic floor and transverse abdominal contraction x 10 seconds Goal met STG Duration 4 weeks Senior Living Goal (LTG) aMrianne is able to perform dynamic lumbar and SI stabilization exercises for improved support of the low back and SI joint. 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 She has done well with her home program and will continue to work on stabilization. I did touch base again today on a SI belt for hiking and or prolotherapy as a means for providing increased SI stabilization. At this point Marianne will be discharged from PT Physical Therapy Plan Discharge Physical Therapy Discharge Reasons Goals Met
== END 2020-04-06 08:21 ==
LOC: PHYS 12:00
PROVIDERS: PCP Nurse Practitioner Family; Referring Provider Nurse Practitioner Family; Visit Provider Nurse Practitioner Family
DX: M54.40 Lumbago with sciatica, unspecified side (principal)
CPT/HCPCS: 97110; 97112; 97140; 97161; 97535

== ENCOUNTER → 2021-11-06 12:43 | Outpatient (CLI) | payer OTHER, SELFPAY ==
--- NOTE | 2021-11-06 | DI.MRI.S_ITS ---
PROCEDURE: MR LUMBAR SPINE WO CON INDICATIONS: Radiculopathy, lumbar region TECHNIQUE: Noncontrast sagittal T1 spin echo and T2 fast echo, sagittal STIR, and T2 fast spin echo through the lumbar spine. In cases with scoliosis, additional coronal T2 fast spin echo may be performed. COMPARISON: [facility], [place], XR LUMBAR SPINE WITH OBLIQUES PLUS FLEXION EXTENSION, 10/16/2021, 9:05. FINDINGS: Image quality: Excellent. Alignment and Curvature: There is normal bony alignment. Bone Marrow: Marrow is of normal overall signal. No acute vertebral body compression fractures. Spinal Cord: Conus medullaris terminates at the L1 level. Visualized cord demonstrates normal signal and size. Paraspinous Soft Tissues: No paravertebral masses. T12-L1: Normal appearance. L1-L2: Normal appearance. L2-L3: Normal appearance. L3-L4: Normal appearance. L4-L5: Normal appearance. L5-S1: Normal appearance. IMPRESSION: Normal. No significant disc pathology, neural foraminal narrowing, or central canal narrowing can be seen. Dictated by: Ramesh Leonard M.D. on 11/06/2021 at 15:29 Approved by: Ramesh Leonard M.D. on 11/06/2021 at 15:30
== END ==
PROVIDERS: PCP Family Medicine; Referring Provider Physical Medicine & Rehabilitation Pain Medicine; Visit Provider Physical Medicine & Rehabilitation Pain Medicine
DX: M54.16 Radiculopathy, lumbar region (principal)
CPT/HCPCS: 72148

== ENCOUNTER → 2022-11-06 07:49 | Outpatient (CLI) | payer OTHER, SELFPAY ==
[2022-11-06 09:28] LABS: Add Manual Diff / Slide Review NO; Basophils Absolute Auto 100 /uL (0-100); Basophils Percent Auto 0.7 % (0-2); Eosinophils Absolute Auto 200 /uL (0-450); Eosinophils Percent Auto 2.7 % (2-4); Hematocrit 40.4 % (36-46); Hemoglobin 13.7 g/dL (12.0-16.0); Lymphocytes Absolute Auto 2100 /uL (1100-4500); Lymphocytes Percent Auto 29.1 % (25-40); Mean Corpuscular Volume 88.1 fL (80-100); Monocytes Absolute Auto 500 /uL (0-900); Monocytes Percent Auto 7.4 % (3-14); Neutrophils Absolute Auto 4300 /uL (1500-7000); Neutrophils Percent Auto 60.1 % (50-75); Platelet Count 336 X10^3/uL (150-400); Red Blood Cell Count 4.58 X10^6/uL (4.0-5.2); Red Cell Distribution Width 12.8 % (11.6-14.8); White Blood Cell Count 7.1 X10^3/uL (4.5-11.0)
[2022-11-06 09:53] LABS: Alanine Aminotransferase 31 IU/L (<35); Albumin 4.2 g/dL (3.5-5.0); Albumin Globulin Ratio 1.6 (1.0-2.8); Alkaline Phosphatase 55 U/L (38-126); Aspartate Aminotransferase 24 IU/L (14-36); BUN Creatinine Ratio 18.5 (6-22); Bilirubin Total 0.4 mg/dL (0.2-1.3); Blood Urea Nitrogen 12 mg/dL (7-17); Carbon Dioxide 27 mmol/L (22-32); Chloride 103 mmol/L (98-107); Cholesterol 202 mg/dL (140-199); Estimated Glomerular Filt Rate > 60 mL/min (>60); Globulin 2.6 g/dL (1.7-4.1); Glucose 89 mg/dL (70-100); HDL Cholesterol 47 mg/dL (40-60); HEMOLYSIS < 15 (0-50); LDL Cholesterol Calculated 127 mg/dL (<100); Potassium 4.3 mmol/L (3.4-5.1); Sodium 136 mmol/L (137-145); Total Protein 6.8 g/dL (6.3-8.2); Triglycerides 142 mg/dL (35-150)
[2022-11-06 10:24] LABS: Thyroid Stimulating Hormone 3.53 uIU/mL (0.47-4.68)
== END ==
PROVIDERS: Family Provider Family Medicine; PCP Family Medicine; Referring Provider Family Medicine; Visit Provider Family Medicine
DX: F32.1 Major depressive disorder, single episode, moderate (principal)
CPT/HCPCS: 36415; 80053; 80061; 84439; 84443; 85025

== ENCOUNTER → 2023-02-01 08:24 | Outpatient (CLI) | payer OTHER, SELFPAY ==
--- NOTE | 2023-02-01 | DI.MG.S_ITS ---
BILATERAL DIGITAL SCREENING MAMMOGRAM 3D/2D WITH CAD: 02/01/2023 CLINICAL: Baseline exam. Routine screening. Family history of breast cancer. No prior exams were available for comparison. Both breasts are heterogeneously dense, which may obscure small masses (category c / 51-75% glandular tissue). Current study was also evaluated with a Computer Aided Detection (CAD) system. No significant masses, calcifications, or other findings are seen in either breast. IMPRESSION: NEGATIVE There is no mammographic evidence of malignancy. A 1 year screening mammogram is recommended. Based on Tyrer-Cuzick model (a risk assessment model), the patient's lifetime risk is 27.2% and her 10 year risk is 4.7%. If a patient has an elevated risk, a more comprehensive evaluation should be considered and/or a referral to a genetic counselor. The [place] [employer], [place], and NCCN Guidelines advise the consideration of Breast MRI as an adjunct to screening mammography in patients whose Lifetime risk to develop breast cancer is 20% or higher. This exam was interpreted at Station ID: [id number]. NOTE: For mammograms, a report in lay terms will be sent to the patient. Approximately 15% of breast malignancies will not be visualized mammographically. In the management of a palpable breast mass, a negative mammogram must not discourage biopsy of a clinically suspicious lesion. Electronically Signed By: Mona Alegria M.D., PH.D beckie/aubrie:02/03/2023 22:36:51 letter sent: Normal Exam ACR BI-RADS Category 1: Negative [id number]
== END ==
PROVIDERS: Family Provider Family Medicine; PCP Family Medicine; Referring Provider Registered Nurse; Visit Provider Registered Nurse
DX: Z12.31 Encounter for screening mammogram for malignant neoplasm of breast (principal); Z80.3 Family history of malignant neoplasm of breast
CPT/HCPCS: 77063; 77067

== ENCOUNTER 2023-02-20 14:30 | Outpatient (RCR) | payer OTHER, SELFPAY ==
--- NOTE | 2022-12-19 08:23 | PT.OIE ---
Current Diagnoses Radiculopathy, lumbar region (01/30/23) Muscle weakness (generalized) (01/30/23) Visit Care Team Role Provider Type Anand Cornejo MD Attending Provider Physician Family Provider Primary Care Provider Referring Provider Specialty: Family Practice Address: [facility] [place], [address] Email: [email or web address] Physical Therapy Initial Evaluation PT-OP-A Visit Information Start: 12/19/22 08:01 Freq: Status: Active Protocol: Document 02/12/23 08:03 [facility] (Rec: 12/19/22 09:06 [facility] [id number]) Out-Patient Physical Therapy Visit Information Visit Information Visit Type Initial Evaluation Visit Start Time 08:05 Visit Stop Time 08:45 Total Visit Minutes 40 Visit Number 1 Evaluation Information Evaluation Date 12/19/22 PT-OP-B Current Condition Start: 12/19/22 08:01 Freq: Status: Active Protocol: Document 02/12/23 08:03 [facility] (Rec: 12/19/22 08:39 [facility] [id number]) Current Condition History of Current Condition Onset Date 2020 Current Complaints low back and SI tightness,some radiating sx, trying to progress activity History of Current Condition pt notes she is doing better than 6 months ago, she wants to stay on top of her symptoms , She still feels tightness in her low back in the center. She will still get the twinges in her hips especially near her cycle and mostly it stays for a day or so. IF those twinges stay for longer she will get that refered pain into her anterior thighs. She has been able to start running now and has been doing a interval training and she can maintain that for a few miles. She wants to be able to build her strength. She feels like she stretches her hamstrings but isn't able to get to her back. Her back will get tired after standing. She feels tightness into the low back and SI region that it feels difficult for her to stretch out. After a long day of work she will feel tired from her low back into her anterior hips. 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 for work causes increased pain and fatigue PT-OP-C Subjective Start: 12/19/22 08:01 Freq: Status: Active Protocol: Document 02/12/23 08:03 [facility] (Rec: 12/19/22 09:32 [facility] [id number]) Patient Questionnaires Oswestry Low Back Index Oswestry Score 8 Oswestry Impairment 1 to 19% Impaired (Score 1-19) PT-OP-F Manual Assessment Start: 12/19/22 08:01 Freq: Status: Active Protocol: Document 02/12/23 08:03 [facility] (Rec: 12/19/22 09:06 [facility] [id number]) Manual Assessments Joint Mobility Assessment Joint Mobility Assessment prone right hip knee flexion creates Right sided low back increased joint extension Lumber spine hyper mobile into extension right hip anterior pinching withhip flexion PT-OP-K Range of Motion Start: 12/19/22 08:01 Freq: Status: Active Protocol: Document 02/12/23 08:03 [facility] (Rec: 12/19/22 09:31 [facility] [id number]) Lumbar Spine Range of Motion Lumbar Spine Active Lateral Flexion Left 15 Lateral Flexion Right 10 ROM Limitations Soft Tissue Tightness Comments lumbar lateral sidebending causes pinching each side and right side has restrictions Hip Goniometric Range of Motion Hip Left Hip ROM WFL Yes Right Hip ROM WFL No Testing Position Supine Flexion w/Knee Flexed 115 Comments anterior hip pinching at 115 degrees hip flexion PT-OP-M Strength Start: 12/19/22 08:01 Freq: Status: Active Protocol: Document 02/12/23 08:03 [facility] (Rec: 12/19/22 09:31 [facility] [id number]) Trunk Strength Trunk Manual Muscle Testing Testing Position Supine Flexion 4- Good- Core Stabilization difficulty with core stabilization in prone, low back arches with prone knee flexion on the right side PT-OP-Q Treatments Start: 12/19/22 08:01 Freq: Status: Active Protocol: Document 02/12/23 08:03 [facility] (Rec: 12/19/22 09:31 [facility] [id number]) Therapeutic Exercises Supine Exercises supine bug Reps/Minutes x 10 reps knees flexed Sitting Exercises seated active hip flexion Reps/Minutes x 10 reps Standing Exercises modified down dog Comments to open up the sacrum and low back standing pelvic tilts Side bilateral Reps/Minutes to do against the wall with breaks at work 50-10 reps Other Exercises quadruped hip extension with core stabilization Reps/Minutes x 10 PT-OP-T Assessment and Plan Start: 12/19/22 08:01 Freq: Status: Active Protocol: Document 02/12/23 08:03 [facility] (Rec: 12/19/22 09:06 [facility] [id number]) Physical Therapy Assessment Rehab Potential Rehabilitation Potential Excellent Evaluation Complexity Number of Personal Factors/Comorbidities 0 Number of Body Systems Impaired 1-2 Clinical Presentation at Evaluation Stable Impairments Impairments Activity Tolerance,Functional Activities,Pain,Posture, Strength Goals 3 Impairment lumbar instability with prone knee flexion, decreased ability to stabiize the lumbar spine with active hip extension/prone knee flexion [employer] Goal (LTG) With core stabilization exercises Marianne is able to properly stabilize her spine decreasing instability and increased extension with hip extension and prone knee flexion LTG Duration 12 weeks 2 Impairment Residual tightness in the sacrum, ischial region, and hips especially following cardio exercise Long-Term Goal (LTG) Marianne in independent with a home program of stretches to decompress her spine as well as stretches she can do throughout her day to decompress her spine 1 Impairment Marianne lacks a progression of exercises for a home program for dynamic core stabilization Long-Term Goal (LTG) Marianne feel independent with a updated core program to work on prior to cardio exercise to help with lumbar stability with running/walking activity LTG Duration 12 weeks Assessment Summary Assessment Marianne returns to PT after going through successsful prolotherapy for her hips and pelvis and being able to progress her exercises at home with overall decreased lumbar referred pain into the hips that had been limiting her activity level. Although she is much better, Marianne is not yet fully able to return to the activity she would like to . Marianne reports she has been able to start a interval program for walk run but that her area where she can feel tightness in is her SI region. Tightness comes on a day or two after exercise and she is not sure what to do to help this. She also reports her low back and pelvis feels tired after standing for work. 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 With exam today Marianne presents with some hip impingment on the right side with end range hip flexion. With prone knee flexion there is anterior pelvic tilt noted with instability of the lower spine into extension. Core strength preventing lumbar extension is limited. We discussed trying to work on a few minutes of lumbar flexion during the day in standing against a wall or working on modified down dog when she has breaks at work. She was given lumbar stabilization exercises for her core to work on prior to her runs to help with core activation first. Treatment will focus on core stability keeping her spine in neutral to avoid hyper extension and nerve irritation . Marianne is a good candidate for PT Physical Therapy Plan Frequency and Duration Frequency of Treatment 1x/Week Duration of treatment (weeks) 12 Plan of Care Start Date 12/19/22 Plan of Care End Date 03/13/23 Therapeutic Interventions Therapeutic Interventions Home Exercise Program, Neuromuscular Re-education, Patient/Caregiver Education, Self-Care/Home Management,Soft Tissue Mobilization, Therapeutic Exercises Next Visit Focus/Plan Next Note Type Treatment Note Next Visit Plan Review exercises established today and progress core stabilization
--- NOTE | 2022-12-19 09:36 | PT.OPPOC ---
Physical, Occupational & Speech Therapy At [facility] Current Diagnoses Radiculopathy, lumbar region (12/19/22) Muscle weakness (generalized) (12/19/22) Visit Care Team Role Provider Type Anand Cornejo MD Attending Provider Physician Family Provider Primary Care Provider Referring Provider Specialty: Family Practice Address: [facility] [address] [address] [place], [place], [facility] Email: [email or web address] Plan Of Care PT-OP-T Assessment and Plan Start: 12/19/22 08:01 Freq: Status: Active Protocol: Document 12/19/22 08:03 [facility] (Rec: 12/19/22 09:06 [facility] [id number]) Physical Therapy Assessment Rehab Potential Rehabilitation Potential Excellent Evaluation Complexity Number of Personal Factors/Comorbidities 0 Number of Body Systems Impaired 1-2 Clinical Presentation at Evaluation Stable Impairments Impairments Activity Tolerance,Functional Activities,Pain,Posture, Strength Goals 3 Impairment lumbar instability with prone knee flexion, decreased ability to stabiize the lumbar spine with active hip extension/prone knee flexion [facility] Goal (LTG) With core stabilization exercises Marianne is able to properly stabilize her spine decreasing instability and increased extension with hip extension and prone knee flexion LTG Duration 12 weeks 2 Impairment Residual tightness in the sacrum, ischial region, and hips especially following cardio exercise [facility] Goal (LTG) Marianne in independent with a home program of stretches to decompress her spine as well as stretches she can do throughout her day to decompress her spine 1 Impairment Marianne lacks a progression of exercises for a home program for dynamic core stabilization [facility] Goal (LTG) Marianne feel independent with a updated core program to work on prior to cardio exercise to help with lumbar stability with running/walking activity LTG Duration 12 weeks Assessment Summary Assessment Marianne returns to PT after going through successsful prolotherapy for her hips and pelvis and being able to progress her exercises at home with overall decreased lumbar referred pain into the hips that had been limiting her activity level. Although she is much better, Marianne is not yet fully able to return to the activity she would like to . Marianne reports she has been able to start a interval program for walk run but that her area where she can feel tightness in is her SI region. Tightness comes on a day or two after exercise and she is not sure what to do to help this. She also reports her low back and pelvis feels tired after standing for work. 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 With exam today Marianne presents with some hip impingment on the right side with end range hip flexion. With prone knee flexion there is anterior pelvic tilt noted with instability of the lower spine into extension. Core strength preventing lumbar extension is limited. We discussed trying to work on a few minutes of lumbar flexion during the day in standing against a wall or working on modified down dog when she has breaks at work. She was given lumbar stabilization exercises for her core to work on prior to her runs to help with core activation first. Treatment will focus on core stability keeping her spine in neutral to avoid hyper extension and nerve irritation . Marianne is a good candidate for PT Physical Therapy Plan Frequency and Duration Frequency of Treatment 1x/Week Duration of treatment (weeks) 12 Plan of Care Start Date 12/19/22 Plan of Care End Date 03/13/23 Therapeutic Interventions Therapeutic Interventions Home Exercise Program, Neuromuscular Re-education, Patient/Caregiver Education, Self-Care/Home Management,Soft Tissue Mobilization, Therapeutic Exercises Next Visit Focus/Plan Next Note Type Treatment Note Next Visit Plan Review exercises established today and progress core stabilization Plan of Care Dates Plan of Care Start Date 12/19/22 Plan of Care End Date 03/13/23 Electronically Signed by: Pooja Guidry, PT 12/19/22 0936 If you are in agreement with this Plan of Care, please return a signed and dated copy. I have reviewed this Plan of Care and certify that the skilled therapy services above are required to meet the patient?s needs. Physician Signature Date Printed Name and Credentials Clinical Instructor Signature Printed Name and Credentials
--- NOTE | 2023-01-01 13:50 | PT.OTN ---
Current Diagnoses Radiculopathy, lumbar region (01/01/23) Muscle weakness (generalized) (01/01/23) Physical Therapy Treatment Note PT-OP-A Visit Information Start: 12/19/22 08:01 Freq: Status: Active Protocol: Document 01/01/23 07:59 [facility] (Rec: 01/01/23 08:49 [facility] [id number]) Out-Patient Physical Therapy Visit Information Visit Information Visit Type Treatment Note Visit Start Time 08:00 Visit Stop Time 08:45 Total Visit Minutes 45 Visit Number 2 PT-OP-B Current Condition Start: 12/19/22 08:01 Freq: Status: Active Protocol: Document 12/19/22 08:03 [facility] (Rec: 12/19/22 08:39 [facility] [id number]) Current Condition History of Current Condition Onset Date 2020 Current Complaints low back and SI tightness,some radiating sx, trying to progress activity History of Current Condition pt notes she is doing better than 6 months ago, she wants to stay on top of her symptoms , She still feels tightness in her low back in the center. She will still get the twinges in her hips especially near her cycle and mostly it stays for a day or so. IF those twinges stay for longer she will get that refered pain into her anterior thighs. She has been able to start running now and has been doing a interval training and she can maintain that for a few miles. She wants to be able to build her strength. She feels like she stretches her hamstrings but isn't able to get to her back. Her back will get tired after standing. She feels tightness into the low back and SI region that it feels difficult for her to stretch out. After a long day of work she will feel tired from her low back into her anterior hips. 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 for work causes increased pain and fatigue PT-OP-C Subjective Start: 12/19/22 08:01 Freq: Status: Active Protocol: Document 01/01/23 07:59 [facility] (Rec: 01/01/23 08:49 [facility] [id number]) OP-PT Subjective Patient Comments Patient Comments pt has been doing her exercises, she still feels tight in her hamstrings and down dog feels good its just tight. She was able to run 3 times last week but does feel tightness for the day after her fun in her low back as well as some of the nerve symptoms PT-OP-F Manual Assessment Start: 12/19/22 08:01 Freq: Status: Active Protocol: Document 12/19/22 08:03 [facility] (Rec: 12/19/22 09:06 [facility] [id number]) Manual Assessments Joint Mobility Assessment Joint Mobility Assessment prone right hip knee flexion creates Right sided low back increased joint extension Lumber spine hyper mobile into extension right hip anterior pinching withhip flexion PT-OP-K Range of Motion Start: 12/19/22 08:01 Freq: Status: Active Protocol: Document 12/19/22 08:03 [facility] (Rec: 12/19/22 09:31 [facility] [id number]) Lumbar Spine Range of Motion Lumbar Spine Active Lateral Flexion Left 15 Lateral Flexion Right 10 ROM Limitations Soft Tissue Tightness Comments lumbar lateral sidebending causes pinching each side and right side has restrictions Hip Goniometric Range of Motion Hip Left Hip ROM WFL Yes Right Hip ROM WFL No Testing Position Supine Flexion w/Knee Flexed 115 Comments anterior hip pinching at 115 degrees hip flexion PT-OP-M Strength Start: 12/19/22 08:01 Freq: Status: Active Protocol: Document 12/19/22 08:03 [facility] (Rec: 12/19/22 09:31 [facility] [id number]) Trunk Strength Trunk Manual Muscle Testing Testing Position Supine Flexion 4- Good- Core Stabilization difficulty with core stabilization in prone, low back arches with prone knee flexion on the right side PT-OP-Q Treatments Start: 12/19/22 08:01 Freq: Status: Active Protocol: Document 01/01/23 07:59 [facility] (Rec: 01/01/23 08:49 [facility] [id number]) Therapeutic Exercises Supine Exercises supine bug Reps/Minutes x 10 reps knees flexed Sitting Exercises seated active hip flexion Reps/Minutes x 10 reps Other Exercises quadruped thoracic rotation Reps/Minutes x 10 reps quadruped side bends Reps/Minutes x 10 reps pelvic tilts Reps/Minutes x 10 reps quadruped hip extension with core stabilization Reps/Minutes x 10 Comments work on one leg at a [place] Manual Therapy Treatment Soft Tissue Mobilization lumbar paraspinals MFR Mobilization Type Instrument Assisted,Myofascial Release Intensity/Depth Moderate Comments cupping used as a MFR tool to help with paraspinal tightness Manual Techniques kinesiotape over the sacrum Comments kinesiotape in a star pattern over the sacrum to help decrease fascial tightness PT-OP-T Assessment and Plan Start: 12/19/22 08:01 Freq: Status: Active Protocol: Document 01/01/23 07:59 [facility] (Rec: 01/01/23 08:49 [facility] [id number]) Physical Therapy Assessment Assessment Summary Assessment Marianne presented with guarding and tightness L>R side lumbar paraspinals. I did work on cupping over the Myofascial tissue as well as kinesiotape to see if we could give her some relief from the tightness . She is working on her stabilization exercises as well as her stretches at home Physical Therapy Plan Frequency and Duration Frequency of Treatment 1x/Week Duration of treatment (weeks) 12 Plan of Care Start Date 12/19/22 Plan of Care End Date 03/13/23 Therapeutic Interventions Therapeutic Interventions Home Exercise Program, Neuromuscular Re-education, Patient/Caregiver Education, Self-Care/Home Management,Soft Tissue Mobilization, Therapeutic Exercises Next Visit Focus/Plan Next Note Type Treatment Note Next Visit Plan check in and see how Marianne did with the cupping and kinesiotape next visit. Progress exercises if able
--- NOTE | 2023-01-21 16:40 | PT.OTN ---
Current Diagnoses Radiculopathy, lumbar region (01/21/23) Muscle weakness (generalized) (01/21/23) Physical Therapy Treatment Note PT-OP-A Visit Information Start: 12/19/22 08:01 Freq: Status: Active Protocol: Document 01/21/23 08:00 [facility] (Rec: 01/21/23 16:39 [facility] [id number]) Out-Patient Physical Therapy Visit Information Visit Information Visit Type Treatment Note Visit Start Time 08:00 Visit Stop Time 08:45 Total Visit Minutes 45 Visit Number 3 PT-OP-B Current Condition Start: 12/19/22 08:01 Freq: Status: Active Protocol: Document 12/19/22 08:03 [facility] (Rec: 12/19/22 08:39 [facility] [id number]) Current Condition History of Current Condition Onset Date 2020 Current Complaints low back and SI tightness,some radiating sx, trying to progress activity History of Current Condition pt notes she is doing better than 6 months ago, she wants to stay on top of her symptoms , She still feels tightness in her low back in the center. She will still get the twinges in her hips especially near her cycle and mostly it stays for a day or so. IF those twinges stay for longer she will get that refered pain into her anterior thighs. She has been able to start running now and has been doing a interval training and she can maintain that for a few miles. She wants to be able to build her strength. She feels like she stretches her hamstrings but isn't able to get to her back. Her back will get tired after standing. She feels tightness into the low back and SI region that it feels difficult for her to stretch out. After a long day of work she will feel tired from her low back into her anterior hips. Treatment Goals Patient/Caregiver Goals Mireille's goals include increasing her strength, decreasing tightness into her hips and pelvis, and progressing her running and hiking ability without feeling the low back tightness Current Functional Impairments (Reported) Functional Limitations- Mobility/Gait pain prevents increased walking and running distances Functional Limitations- Work/School standing for work causes increased pain and fatigue PT-OP-C Subjective Start: 12/19/22 08:01 Freq: Status: Active Protocol: Document 01/21/23 08:00 [facility] (Rec: 01/21/23 08:51 [facility] [id number]) OP-PT Subjective Patient Comments Patient Comments mireille notes the cupping and the kinesiotape really helped, she has had some stress this week so she feels some pain today she felt the cupping brought the pain down 30-40 percent PT-OP-F Manual Assessment Start: 12/19/22 08:01 Freq: Status: Active Protocol: Document 12/19/22 08:03 [facility] (Rec: 12/19/22 09:06 [facility] [id number]) Manual Assessments Joint Mobility Assessment Joint Mobility Assessment prone right hip knee flexion creates Right sided low back increased joint extension Lumber spine hyper mobile into extension right hip anterior pinching withhip flexion PT-OP-K Range of Motion Start: 12/19/22 08:01 Freq: Status: Active Protocol: Document 12/19/22 08:03 [facility] (Rec: 12/19/22 09:31 [facility] [id number]) Lumbar Spine Range of Motion Lumbar Spine Active Lateral Flexion Left 15 Lateral Flexion Right 10 ROM Limitations Soft Tissue Tightness Comments lumbar lateral sidebending causes pinching each side and right side has restrictions Hip Goniometric Range of Motion Hip Left Hip ROM WFL Yes Right Hip ROM WFL No Testing Position Supine Flexion w/Knee Flexed 115 Comments anterior hip pinching at 115 degrees hip flexion PT-OP-M Strength Start: 12/19/22 08:01 Freq: Status: Active Protocol: Document 12/19/22 08:03 [facility] (Rec: 12/19/22 09:31 [facility] [id number]) Trunk Strength Trunk Manual Muscle Testing Testing Position Supine Flexion 4- Good- Core Stabilization difficulty with core stabilization in prone, low back arches with prone knee flexion on the right side PT-OP-Q Treatments Start: 12/19/22 08:01 Freq: Status: Active Protocol: Document 01/21/23 08:00 [facility] (Rec: 01/21/23 16:39 [facility] [id number]) Therapeutic Exercises Other Exercises quadruped thoracic rotation Reps/Minutes x 10 reps quadruped side bends Reps/Minutes x 10 reps pelvic tilts Reps/Minutes x 10 reps quadruped hip extension with core stabilization Other Exercise Name this was better following cupping techniques today Reps/Minutes x 10 Comments work on one leg at a [place] Manual Therapy Treatment Soft Tissue Mobilization left piriformis MFR Comments cupping was done over the left piriformis and cups were used to mobilize the tissue in rotational patterns lumbar paraspinals MFR Mobilization Type Instrument Assisted,Myofascial Release Intensity/Depth Moderate Comments cupping used as a MFR tool to help with paraspinal tightness Manual Techniques lumbar flexion in quarduped with flexion assit with cupping Reps/Duration x 10 reps Comments Mireille could feel a increase in lumbar extension with the cupping as a assist kinesiotape over the sacrum Comments kinesiotape in a star pattern over the sacrum to help decrease fascial tightness PT-OP-T Assessment and Plan Start: 12/19/22 08:01 Freq: Status: Active Protocol: Document 01/21/23 08:00 [facility] (Rec: 01/21/23 16:39 [facility] [id number]) Physical Therapy Assessment Assessment Summary Assessment Mireille responded well to cupping techniques and kinesiotape over her sacrum last visit. She was shown rock tape cups today and how to use them for home. I also instructed her in kinesiotape technique for decompression of the sacrum. She tolerated this well and felt improvement with lumbar flexion following treatment Physical Therapy Plan Frequency and Duration Frequency of Treatment 1x/Week Duration of treatment (weeks) 12 Plan of Care Start Date 12/19/22 Plan of Care End Date 03/13/23 Therapeutic Interventions Therapeutic Interventions Home Exercise Program, Neuromuscular Re-education, Patient/Caregiver Education, Self-Care/Home Management,Soft Tissue Mobilization, Therapeutic Exercises Next Visit Focus/Plan Next Note Type Treatment Note Next Visit Plan progress stabilization exercises and reassess pts pain next visit
--- NOTE | 2023-01-30 18:06 | PT.OTN ---
Current Diagnoses Radiculopathy, lumbar region (01/30/23) Muscle weakness (generalized) (01/30/23) Physical Therapy Treatment Note PT-OP-A Visit Information Start: 12/19/22 08:01 Freq: Status: Active Protocol: Document 01/30/23 11:18 [facility] (Rec: 01/30/23 15:23 [facility] [id number]) Out-Patient Physical Therapy Visit Information Visit Information Visit Type Treatment Note Visit Start Time 11:20 Visit Stop Time 12:05 Total Visit Minutes 45 Visit Number 4 Number of HOSPICE SOCIAL WORKER Visits 0 PT-OP-B Current Condition Start: 12/19/22 08:01 Freq: Status: Active Protocol: Document 12/19/22 08:03 [facility] (Rec: 12/19/22 08:39 [facility] [id number]) Current Condition History of Current Condition Onset Date 2020 Current Complaints low back and SI tightness,some radiating sx, trying to progress activity History of Current Condition pt notes she is doing better than 6 months ago, she wants to stay on top of her symptoms , She still feels tightness in her low back in the center. She will still get the twinges in her hips especially near her cycle and mostly it stays for a day or so. IF those twinges stay for longer she will get that refered pain into her anterior thighs. She has been able to start running now and has been doing a interval training and she can maintain that for a few miles. She wants to be able to build her strength. She feels like she stretches her hamstrings but isn't able to get to her back. Her back will get tired after standing. She feels tightness into the low back and SI region that it feels difficult for her to stretch out. After a long day of work she will feel tired from her low back into her anterior hips. 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 for work causes increased pain and fatigue PT-OP-C Subjective Start: 12/19/22 08:01 Freq: Status: Active Protocol: Document 01/30/23 11:18 [facility] (Rec: 01/30/23 15:23 [facility] [id number]) OP-PT Subjective Patient Comments Patient Comments Pt reports compliance w/ exercises. Notes she has to give herself a rest day btwn running to avoid inc pain. She feels like she can do most of her typical activities with min pain and inconvience. PT-OP-F Manual Assessment Start: 12/19/22 08:01 Freq: Status: Active Protocol: Document 12/19/22 08:03 [facility] (Rec: 12/19/22 09:06 [facility] [id number]) Manual Assessments Joint Mobility Assessment Joint Mobility Assessment prone right hip knee flexion creates Right sided low back increased joint extension Lumber spine hyper mobile into extension right hip anterior pinching withhip flexion PT-OP-K Range of Motion Start: 12/19/22 08:01 Freq: Status: Active Protocol: Document 12/19/22 08:03 [facility] (Rec: 12/19/22 09:31 [facility] [id number]) Lumbar Spine Range of Motion Lumbar Spine Active Lateral Flexion Left 15 Lateral Flexion Right 10 ROM Limitations Soft Tissue Tightness Comments lumbar lateral sidebending causes pinching each side and right side has restrictions Hip Goniometric Range of Motion Hip Left Hip ROM WFL Yes Right Hip ROM WFL No Testing Position Supine Flexion w/Knee Flexed 115 Comments anterior hip pinching at 115 degrees hip flexion PT-OP-M Strength Start: 12/19/22 08:01 Freq: Status: Active Protocol: Document 12/19/22 08:03 [facility] (Rec: 12/19/22 09:31 [facility] [id number]) Trunk Strength Trunk Manual Muscle Testing Testing Position Supine Flexion 4- Good- Core Stabilization difficulty with core stabilization in prone, low back arches with prone knee flexion on the right side PT-OP-Q Treatments Start: 12/19/22 08:01 Freq: Status: Active Protocol: Document 01/30/23 11:18 [facility] (Rec: 01/30/23 15:23 [facility] [id number]) Therapeutic Exercises Supine Exercises active HS stretch Side right Reps/Minutes 10 sec x5 Standing Exercises bottoms up Side bilateral Reps/Minutes 5x10s hip flexor stretch Side right Reps/Minutes 1 min SLS Standing Exercise Name onto SL LE in mirror w/table for balance Side bilateral Reps/Minutes 2 min total hip hike Standing Exercise Name tactile cues to relax tailbone and abdomen for neutral pelvis to start Side bilateral Reps/Minutes 15 ea Comments max cues and inc time for getting ant elevation/post dep squat Side bilateral Reps/Minutes 8 Comments tactile cues at longer lumbar Manual Therapy Treatment Soft Tissue Mobilization HS Body Location R proximal w/active HS stretch hip flexor Body Location R Mobilization Type Sustained Pressure Intensity/Depth Moderate Comments w/gentle heel slides & hip IR/ ER Joint Mobilizations hip Joint R inf FM Body Position Hooklying Self-Care/Home Management Treatment Education Other Education 8 min: discussion re: the pull on SI when R hip flexor and HS have inc tesnsion compared to L. discussed possible visceral restrictions and how limitations in this region can cause muscle guarding and tension. Edu re: dec ability to wt accept properly and show good strength in this position likely translates to her running. PT-OP-T Assessment and Plan Start: 12/19/22 08:01 Freq: Status: Active Protocol: Document 01/30/23 11:18 [facility] (Rec: 01/30/23 15:23 [facility] [id number]) Physical Therapy Assessment Goals 3 Impairment lumbar instability with prone knee flexion, decreased ability to stabiize the lumbar spine with active hip extension/prone knee flexion Correction Goal (LTG) With core stabilization exercises Marianne is able to properly stabilize her spine decreasing instability and increased extension with hip extension and prone knee flexion LTG Duration 12 weeks 2 Impairment Residual tightness in the sacrum, ischial region, and hips especially following cardio exercise Patient Services Technician Goal (LTG) Marianne in independent with a home program of stretches to decompress her spine as well as stretches she can do throughout her day to decompress her spine 1 Impairment Marianne lacks a progression of exercises for a home program for dynamic core stabilization Correction Goal (LTG) Marianne feel independent with a updated core program to work on prior to cardio exercise to help with lumbar stability with running/walking activity LTG Duration 12 weeks Assessment Summary Assessment Pt has more tension in R hip flexor (pos darrel test) and R HS (mild dec ROM R compared to L), which likely contributes to SI tension. When assessing wt acceptance w /SLS, pt tends to lat shear when standing on R>LLE, but was able to self correct when cued and mirror was used. She had a lot of difficulty w/hip hike for glute med engagement and wt acceptance. She improved w/max cues for postural position and cues to dec QL activation and get more facilition w/core for lift. Improved hip flex w/manual treatment Physical Therapy Plan Frequency and Duration Frequency of Treatment 1x/Week Duration of treatment (weeks) 12 Plan of Care Start Date 12/19/22 Plan of Care End Date 03/13/23 Next Visit Focus/Plan Next Note Type Treatment Note Next Visit Plan consider assessment of viseral restrictions, cont to look at R hip flexor and ability to hip flex, train w/posture (pt tends to ant tilt and has difficulty getting neutral & letting abdomen relax)
--- NOTE | 2023-02-20 16:00 | PT.OTN ---
Current Diagnoses Radiculopathy, lumbar region (02/20/23) Muscle weakness (generalized) (02/20/23) Physical Therapy Treatment Note PT-OP-A Visit Information Start: 12/19/22 08:01 Freq: Status: Active Protocol: Document 02/20/23 14:30 [facility] (Rec: 03/04/23 07:59 [facility] [id number]) Out-Patient Physical Therapy Visit Information Visit Information Visit Type Treatment Note Visit Start Time 14:30 Visit Stop Time 15:00 Total Visit Minutes 45 Visit Number 5 PT-OP-B Current Condition Start: 12/19/22 08:01 Freq: Status: Active Protocol: Document 12/19/22 08:03 [facility] (Rec: 12/19/22 08:39 [facility] [id number]) Current Condition History of Current Condition Onset Date 2020 Current Complaints low back and SI tightness,some radiating sx, trying to progress activity History of Current Condition pt notes she is doing better than 6 months ago, she wants to stay on top of her symptoms , She still feels tightness in her low back in the center. She will still get the twinges in her hips especially near her cycle and mostly it stays for a day or so. IF those twinges stay for longer she will get that refered pain into her anterior thighs. She has been able to start running now and has been doing a interval training and she can maintain that for a few miles. She wants to be able to build her strength. She feels like she stretches her hamstrings but isn't able to get to her back. Her back will get tired after standing. She feels tightness into the low back and SI region that it feels difficult for her to stretch out. After a long day of work she will feel tired from her low back into her anterior hips. 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 for work causes increased pain and fatigue PT-OP-C Subjective Start: 12/19/22 08:01 Freq: Status: Active Protocol: Document 02/20/23 14:30 [facility] (Rec: 02/20/23 16:21 [facility] [id number]) OP-PT Subjective Patient Comments Patient Comments Marianne is feeling overTall she is stronger, she has tried taping on her own and felt it helped her. There is no more stabbing pain but the tightness after exercise stays for a long time. PT-OP-F Manual Assessment Start: 12/19/22 08:01 Freq: Status: Active Protocol: Document 12/19/22 08:03 [facility] (Rec: 12/19/22 09:06 [facility] [id number]) Manual Assessments Joint Mobility Assessment Joint Mobility Assessment prone right hip knee flexion creates Right sided low back increased joint extension Lumber spine hyper mobile into extension right hip anterior pinching withhip flexion PT-OP-K Range of Motion Start: 12/19/22 08:01 Freq: Status: Active Protocol: Document 12/19/22 08:03 [facility] (Rec: 12/19/22 09:31 [facility] [id number]) Lumbar Spine Range of Motion Lumbar Spine Active Lateral Flexion Left 15 Lateral Flexion Right 10 ROM Limitations Soft Tissue Tightness Comments lumbar lateral sidebending causes pinching each side and right side has restrictions Hip Goniometric Range of Motion Hip Left Hip ROM WFL Yes Right Hip ROM WFL No Testing Position Supine Flexion w/Knee Flexed 115 Comments anterior hip pinching at 115 degrees hip flexion PT-OP-M Strength Start: 12/19/22 08:01 Freq: Status: Active Protocol: Document 12/19/22 08:03 [facility] (Rec: 12/19/22 09:31 [facility] [id number]) Trunk Strength Trunk Manual Muscle Testing Testing Position Supine Flexion 4- Good- Core Stabilization difficulty with core stabilization in prone, low back arches with prone knee flexion on the right side PT-OP-Q Treatments Start: 12/19/22 08:01 Freq: Status: Active Protocol: Document 02/20/23 14:30 [facility] (Rec: 02/20/23 16:21 [facility] [id number]) Therapeutic Exercises Standing Exercises SLS Standing Exercise Name onto SL LE in mirror w/table for balance Side bilateral Reps/Minutes 2 min total squat Side bilateral Reps/Minutes 8 Comments tactile cues at longer lumbar modified down dog Comments to open up the sacrum and low back Other Exercises standing single leg modified squats Reps/Minutes x 10 each lateral and posterior reach Manual Therapy Treatment Soft Tissue Mobilization left piriformis MFR Comments cupping was done over the left piriformis and cups were used to mobilize the tissue in rotational patterns lumbar paraspinals MFR Mobilization Type Instrument Assisted,Myofascial Release Intensity/Depth Moderate Comments cupping used as a MFR tool to help with paraspinal tightness PT-OP-T Assessment and Plan Start: 12/19/22 08:01 Freq: Status: Active Protocol: Document 02/20/23 14:30 [facility] (Rec: 02/20/23 16:21 [facility] [id number]) Physical Therapy Assessment Assessment Summary Assessment I worked on single leg stabilization today as well as adding in single leg squats. This did irritate the SI joint on the left so I worked on modifying the single leg squats to single leg balance with reach outs lateral and posterior. I also worked on cupping for the fascia over the sacrum and piriformis. Marianne will continue on her own down with massage as a modality to help keep her from getting too tight as well as kinesiotape and working on single leg stability. Physical Therapy Plan Discharge Physical Therapy Discharge Reasons Plateau in Progress
== END 2023-03-21 08:29 | disposition home or self-care (01) ==
LOC: PHYS 14:30
PROVIDERS: Family Provider Family Medicine; PCP Family Medicine; Referring Provider Family Medicine; Visit Provider Family Medicine
DX: M54.16 Radiculopathy, lumbar region (principal); M62.81 Muscle weakness (generalized)
CPT/HCPCS: 97110; 97140; 97161; 97535

== ENCOUNTER → 2024-12-03 13:54 | Outpatient (CLI) | payer OTHER, SELFPAY ==
--- NOTE | 2024-12-03 13:58 | DI.US.S_ITS ---
MM diagnostic mammo unilat RT, US breast RT limited: 12/03/2024 BI-RADS: 2 CLINICAL: 44-year old female for right diagnostic mammogram and right diagnostic breast ultrasound that is a recall from screening on 11/01/2024. Tyrer-Cuzick lifetime risk of 24.0%. Current reported family history of breast cancer: mother. PRIOR EXAMS Mammogram(s): 11/01/2024, 02/01/2023. MAMMOGRAPHY TECHNIQUE: 2D and 3D (tomosynthesis) digital mammographic views obtained, with additional images as needed for full coverage. Current study was also evaluated with a Computer Aided Detection (CAD) system. ULTRASOUND TECHNIQUE Real-time lee scale imaging of the area of clinical interest was performed with image documentation. TARGETED Right Breast Ultrasound: Real-time ultrasound exam was performed focused to area of clinical and/or imaging concern. DENSITY Right: C. The breast is heterogeneously dense, which may obscure small masses. MAMMOGRAPHY FINDINGS Right: CC only, Central: The asymmetry seen on recent screening mammogram did not persist with additional imaging and is consistent with superimposition of normal breast tissue. There are no suspicious masses, calcifications, or other findings in the breast. ULTRASOUND FINDINGS Right: Central, Retroareolar. Previous report: CC only, Central: There is no sonographic correlate for the mammographic finding. No suspicious sonographic finding present. Right: Upper at 12:00, 7 cm from nipple: There is no sonographic correlate for the mammographic finding. No suspicious sonographic finding present. Right: Lower at 6:00, 7 cm from nipple: There is no sonographic correlate for the mammographic finding. No suspicious sonographic finding present. IMPRESSION: Right * No evidence of malignancy with benign findings. RECOMMENDATIONS Bilateral * Annual screening mammography. COMMENTS: Findings and recommendations were conveyed to the patient during today's evaluation. According to the Tyrer-Cuzick Risk Assessment Model, based on the information provided your patient has a greater than 20% lifetime risk for developing breast cancer. Consider supplemental screening with breast MRI and participation in a high-risk screening program. OVERALL ASSESSMENT CATEGORY BI-RADS-2: Benign. The [employer] [employer] recommends annual screening mammography beginning at age 40 for women with average risk of breast cancer. ELECTRONICALLY SIGNED: Tiffani Pena M.D. on 12/03/2024 at 03:14:26 PM PT Interpreting Station ID: [id number]
== END ==
LOC: MAMMO 13:56
PROVIDERS: Family Provider Family Medicine; PCP Family Medicine; Referring Provider Registered Nurse; Visit Provider Registered Nurse
DX: R92.8 Other abnormal and inconclusive findings on diagnostic imaging of breast (principal); R92.331 Mammographic heterogeneous density, right breast; Z80.3 Family history of malignant neoplasm of breast
CPT/HCPCS: 76642; 77065; G0279